=== PATIENT | male | born 1955 | race Caucasian/White ===

== ENCOUNTER 2017-10-28 18:51 | Observation (INO) | payer OTHER ==
[~2017-10-28] VITALS: Ht 182.9 cm; Wt 110.4 kg
[2017-10-28] MEDS ORDERED: LISINOPRIL10 M1 PO (18:54)
[2017-10-28] MEDS ORDERED: METFORMIN HCL500 M4 PO (18:54)
--- NOTE | 2017-10-28 19:09 | ED SYNCOPE COMPLAINT ---
History of Present Illness General Chief Complaint: Syncope and Near-Syncope Stated Complaint: BIBA FOR SYNCOPE X 3 TODAY Source: patient Exam Limitations: no limitations Vital Signs & Intake/Output Vital Signs & Intake/Output Vital Signs Date Time Temp Pulse Resp B/P B/P Pulse O2 O2 Flow FiO2 Mean Ox Delivery Rate 10/287 66 18 100/60 98 Room Air 10/28 2031 62 18 107/56 99 Room Air 10/28 1902 99 10/28 1857 98.5 63 18 114/58 97 Room Air Allergies Coded Allergies: NO KNOWN ALLERGIES (10/06/10) Reconcile Medications Lisinopril 10 MG TABLET 1 TAB PO DAILY BP (Reported) Metformin HCl (Metformin HCl ER) 500 MG TAB.ER.24H 1 TAB PO DAILY DM ( Reported) Triage Note: PT BIBA FROM HOME AFTER PASSING OUT X3 TODAY. PER EMS PT GOT DIAPHORETIC DENIES SOB OR CHEST PAIN. PT WAS IN AMBULANCE WHEN HE HAD SOME NAUSEA THAT DROPPED HIS PRESSURE TO 90/40. FLUID WERE EST. IN IV AND FLUID INFUSING. UPON ARRIVAL PT BP 114/58 AT THIS TIME HR 62 02 SAT 98% PM RA Triage Nurses Notes Reviewed? yes Timing: recent history Precipitating Factors: none Context: see below Episode Description: see below Loss of Consciousness: brief (seconds) Associated Symptoms: "I just passed out." HPI: 59-year-old gentleman history of diabetes presents with 3 episodes of syncope. Per his , "he was in the bedroom and I heard a noise. I went in and saw that he had passed out. He then got up, went to another room to get his diabetes medication. He then passed out again for a few seconds. He stood up he said he was feeling okay and then shortly afterwards he passed out again and lost consciousness for a few seconds." The patient states that he had no dizziness chest pain palpitations with any of these 3 episodes. These 3 episodes occurred in the spine and a 5 minutes. His loss of consciousness lasted for a few seconds only. The symptoms were not brought on with standing. He states he was not dehydrated. He states, "I drink water all the time." Past History Travel History Traveled to [place] past 21 day No Medical History Any Pertinent Medical History? 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 MOTHER (Diabetes, diabetic nephropathy, thyroid issues.). Hx Contributory? No Review of Systems Review of Systems Constitutional: Denies: see HPI. Physical Exam Physical Exam Cranial Nerves: normal hearing, normal speech, PERRL Comments: Review of Systems - except as otherwise noted in HPI Review of Systems Constitutional:no symptoms. EENTM:no symptoms. Respiratory:no symptoms. Cardiovascular:no symptoms. GI:no symptoms. Genitourinary:no symptoms. Musculoskeletal:no symptoms. Skin:no symptoms. Neurological/Psychological:no symptoms. Hematologic/Endocrine:no symptoms. Immunologic/Allergic:no symptoms. All Other Systems: Reviewed and Negative Physical Exam Physical Exam General Appearance: well developed/nourished, no apparent distress Head: atraumatic, normal appearance Eyes: Bilateral: normal appearance. Ears, Nose, Throat: normal pharynx, normal ENT inspection Neck: normal inspection, supple, full range of motion Respiratory: normal breath sounds, chest non-tender, no respiratory distress, quiet respiration, lungs clear Cardiovascular: regular rate/rhythm Gastrointestinal: normal bowel sounds, soft, non-tender, no organomegaly Back: normal inspection, normal range of motion Extremities: normal inspection, normal capillary refill, normal range of motion, no edema Neurologic/Psych: no motor/sensory deficits, awake, alert, oriented x 3 Skin: intact, normal color, warm/dry Core Measures ACS in differential dx? No CVA/TIA Diagnosis: No Sepsis Present: No Sepsis Focused Exam Completed? No Progress Differential Diagnosis: vasovagal, valvular syncope vs heart dysrythmia Plan of Care: Orders Procedure Date/time Status Heart Healthy Diet 10/29 B Active Patient Data 10/28 2113 Active Saline Lock 10/[address] in observation 10/29 2111 Active Misc Message 10/29 2111 Active ED Holding Orders 10/29 2111 Active Vital Signs 10/29 2111 Active Code Status 10/29 2111 Active MISTAKE 10/28 1948 Active URINALYSIS 10/28 1948 Active [place] Coma Scale 10/29 1939 Active Intake & Output 10/28 1938 Active TROPONIN LEVEL 10/28 1906 Complete LIPASE 10/28 1906 Complete HEPATIC FUNCTION PANEL 10/28 1906 Complete D-DIMER 10/28 1906 Complete CBC WITHOUT DIFFERENTIAL 10/28 1906 Complete BASIC METABOLIC PANEL 10/28 1906 Complete AMYLASE 10/28 1906 Complete EKG 10/28 1852 Active Laboratory Tests 10/28/171913: Anion Gap 11, Estimated GFR > 60, BUN/Creatinine Ratio 17.8, Glucose 116 H, Calcium 9.0, Total Bilirubin 1.1, Direct Bilirubin 0.1, AST 29, ALT 46, Alkaline Phosphatase 41, Troponin I < 0.01, Total Protein 6.6, Albumin 3.9, Amylase 51, Lipase 150, D-Dimer High Sensitivty < 200, CBC w Diff NO MAN DIFF REQ, RBC 5.24, MCV 85.1, MCH 28.7, MCHC 33.7, RDW 14.8 H, MPV 8.7, Gran % 67.4, Lymphocytes % 23.6, Monocytes % 6.6, Eosinophils % 1.7, Basophils % 0.7, Absolute Granulocytes 7.8 H, Absolute Lymphocytes 2.7, Absolute Monocytes 0.8 H, Absolute Eosinophils 0.2, Absolute Basophils 0.1 Diagnostic Imaging: Viewed by Me: Radiology Read, CT Scan. Discussed w/RAD: Radiology Read, CT Scan. Radiology Impression: PATIENT: MARIANELA BECKER PRESENT AGE: 61 PATIENT ACCOUNT NO: [id number] : 54 LOCATION: [facility] ([facility] ORDERING PHYSICIAN: Ross Butler MD SERVICE DATE: 10/28/17 EXAM TYPE: CAT - CT CERV SPINE WO IV CONTRAST; CT HEAD WO IV CONTRAST EXAMINATION: CT HEAD WITHOUT CONTRAST CT CERVICAL SPINE WITHOUT CONTRAST CLINICAL INFORMATION: Trauma. Loss of consciousness. Fall. Neck pain. COMPARISON : None. TECHNIQUE: Imaging was performed from the skull base to vertex without intravenous administration of contrast. In addition, helical noncontrast CT imaging was acquired through the cervical spine and source images were reviewed along with axial reconstructions and sagittal and coronal MPRs. DLP: 1067.94 mGy -cm FINDINGS: HEAD: No intracranial mass, hemorrhage, or midline shift is visualized. The ventricles and sulci are age-appropriate. No extra-axial collections are identified. The paranasal sinuses and mastoid air cells are well aerated. CERVICAL SPINE: There is no evidence of acute cervical spine fracture. Vertebral bodies remain normal in height. Cervical vertebrae have normal alignment. There is multilevel degenerative spondylosis of the cervical spine with disc height narrowing and endplate spurs and facet joint arthrosis No pre- or paravertebral soft tissue abnormality is identified. Limited assessment of the lung apices is unremarkable. IMPRESSION: 1. No acute intracranial pathology. 2. No CT evidence of acute cervical spine fracture or traumatic subluxation DICTATED BY: Pedro Obrien MD DATE/TIME DICTATED:10/28/172049 TOBACCO SPRAYER :OSEI DATE/TIME TRANSCRIBED:10/28/172049 CONFIDENTIAL, DO NOT COPY WITHOUT APPROPRIATE AUTHORIZATION. <Electronically signed in Other Vendor System> SIGNED BY: Pedro Obrien MD 10/28/172057 CXR Impression: PATIENT: MARIANELA BECKER PRESENT AGE : 61 PATIENT ACCOUNT NO: [id number] : 54 LOCATION: [facility] ([facility]) ORDERING PHYSICIAN: Ross Butler MD SERVICE DATE: 10/28/17 EXAM TYPE: RAD - XRY-PORTABLE CHEST XRAY EXAMINATION: XR PORTABLE CHEST CLINICAL INFORMATION: Chest pain COMPARISON: None TECHNIQUE: Portable frontal view of the chest was obtained. 8:34 PM FINDINGS: No significant abnormality is noted involving the heart, lungs, mediastinum, bony thorax or soft tissues. IMPRESSION : Unremarkable examination. DICTATED BY: Pedro Obrien MD DATE/TIME DICTATED:2100 TOBACCO SPRAYER:OSEI DATE/TIME TRANSCRIBED:10/28/172100 CONFIDENTIAL, DO NOT COPY WITHOUT APPROPRIATE AUTHORIZATION. <Electronically signed in Other Vendor System> SIGNED BY: Pedro Obrien MD 10/28/172104 Initial ED EKG: normal axis, normal intervals, normal p-waves, normal QRS complex, normal sinus rhythm Departure Departure Disposition: STILL A PATIENT Condition: Stable Clinical Impression Primary Impression: Syncope Referrals: Janae AGUDELO,Tee Bahena (PCP/Family) Departure Forms: Customer Survey General Discharge Information Observation Note Spoke With: Magdiel Gomez MD Patient In: Non-ED OBS Care Area Rationale for Observation: My rational for observation is as follows . pt with 3 episodes of syncope, without orthostasis in the context of his diabetes... Pt merits serial trops/ekgs, consider cards eval in AM. Critical Care Note Critical Care Note Critical Care Time: 30-74 min
[2017-10-28 19:22] LABS: ABSOLUTE BASOPHIL COUNT 0.1 /CUMM (0.0-0.2); ABSOLUTE EOSINOPHIL COUNT 0.2 /CUMM (0.0-0.7); ABSOLUTE GRANULOCYTE CT 7.8 /CUMM (1.4-6.5); ABSOLUTE LYMPH COUNT 2.7 /CUMM (1.2-3.4); ABSOLUTE MONOCYTE COUNT 0.8 /CUMM (0.10-0.60); BASOPHIL % 0.7 % (0.0-2.0); EOSINOPHIL % 1.7 % (0-5); GRANULOCYTE % 67.4 % (42.2-75.2); HEMATOCRIT 44.6 % (42-52); MEAN CORPUSCULAR HGB 28.7 PG (27.0-31.0); MEAN CORPUSCULAR HGB CONC 33.7 G/DL (33.0-37.0); MEAN CORPUSCULAR VOLUME 85.1 FL (80.0-94.0); MEAN PLATELET VOLUME 8.7 FL (7.4-10.4); PLATELET COUNT 241 /CUMM (130-400); RBC DISTRIBUTION WIDTH 14.8 % (11.5-14.5); RED BLOOD CELL CT 5.24 /CUMM (4.70-6.10); WHITE BLOOD CELL COUNT 11.6 /CUMM (4.8-10.8)
--- NOTE | 2017-10-28 20:58 | CT SCAN REPORT ---
EXAMINATION: CT HEAD WITHOUT CONTRAST CT CERVICAL SPINE WITHOUT CONTRAST CLINICAL INFORMATION: Trauma. Loss of consciousness. Fall. Neck pain. COMPARISON: None. TECHNIQUE: Imaging was performed from the skull base to vertex without intravenous administration of contrast. In addition, helical noncontrast CT imaging was acquired through the cervical spine and source images were reviewed along with axial reconstructions and sagittal and coronal MPRs. DLP: 1067.94 mGy-cm FINDINGS: HEAD: No intracranial mass, hemorrhage, or midline shift is visualized. The ventricles and sulci are age-appropriate. No extra-axial collections are identified. The paranasal sinuses and mastoid air cells are well aerated. CERVICAL SPINE: There is no evidence of acute cervical spine fracture. Vertebral bodies remain normal in height. Cervical vertebrae have normal alignment. There is multilevel degenerative spondylosis of the cervical spine with disc height narrowing and endplate spurs and facet joint arthrosis No pre- or paravertebral soft tissue abnormality is identified. Limited assessment of the lung apices is unremarkable. IMPRESSION: 1. No acute intracranial pathology. 2. No CT evidence of acute cervical spine fracture or traumatic subluxation
--- NOTE | 2017-10-28 21:05 | RADIOLOGY REPORT ---
EXAMINATION: XR PORTABLE CHEST CLINICAL INFORMATION: Chest pain COMPARISON: None TECHNIQUE: Portable frontal view of the chest was obtained. 8:34 PM FINDINGS: No significant abnormality is noted involving the heart, lungs, mediastinum, bony thorax or soft tissues. IMPRESSION: Unremarkable examination.
--- NOTE | 2017-10-28 21:37 | History & Physical ---
Horacio Moon 10/28/172135: General Information and HPI MD Statement: I have seen and personally examined MARIANELA BECKER and documented this H&P. The patient is a 61 year old M who presented with a patient stated chief complaint of [multiple syncopes]. Source of Information: patient, family Exam Limitations: no limitations History of Present Illness: The patient is a 61 years old man with a past medical history significant for DM , boarderline HTN, and anxiety who is here with CC of three episodes of syncope. Last night he slept on the couch for 8 hours and this morning when he woke up with a neck pain but he was fine other than that. He reports that he keeps himself hydrated daily. He has boarderline HTN (on Lisinopril), also DM (on Metformin), he took his medications this morning. His BS this morning was 97. and he has no history of low BS. He was fine till this evening that he was at home with his when he watching TV and tried to get up fast and collapsed which was witnessed by his (no abnormal movements reported). He fell backwards onto the bed and hit his back on the frame of the bed and denies any loss of consciousness. He went to the kitchen afterwards to do so where he again collapsed (this time her did not witness it); he does not recall if he had any injuries during this fall. He was found moments later on the floor by his whom picked him up and was walking down the arauz with him when he suddenly collapsed a third time. In the 3rd episode he also had diaphoresis. He reports any unusal symptoms prior to the syncope episodes. He reports no feces or urine passage and no headach after that. His denies any abnormal movement. He denies palpitaion, but he had nausea before he got to the ED. He was diagnosed with lyme and was on Doxycycline 100 BID and also had some cat scratch on his lower part of right patella ( cat was +ve for Bartonella), he was on Doxycycline for a total of two months BID. 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 Lab: WBC: 11.6, Hb: 15, Hct: 44.6, Plt: 241 Na: 139, K: 4.2, Cl: 104, CO2: 24, BUN: 16, Cr: 0.9, BS: 116 D-Dimer < 200 LFT: WNL Amylase: 51, Lipase: 150 Trop: 0.01 Imaging: CXR: Unremarkable examination. Head and Neck CT: 1. No acute intracranial pathology. 2. No CT evidence of acute cervical spine fracture or traumatic subluxation Allergies/Medications Allergies: Coded Allergies: NO KNOWN ALLERGIES (10/06/10) Home Med list Lisinopril 10 MG TABLET 1 TAB PO DAILY BP (Reported) Metformin HCl (Metformin HCl ER) 500 MG TAB.ER.24H 1 TAB PO DAILY DM ( Reported) Ranitidine HCl 300 MG TABLET 1 TAB PO QPM GERD (Reported) Compliance With Home Meds: GOOD Past History Travel History Traveled to [place] past 21 day No Medical History Neurological: LYME DISEASE BARTINELLA EENT: NONE Cardiovascular: Borderline HTN Respiratory: NONE Gastrointestinal: NONE Hepatic: NONE Renal: NONE Musculoskeletal: NONE Psychiatric: anxiety, PARONOID DISORDER Endocrine: diabetes Blood Disorders: NONE Cancer(s): prostate cancer 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 MOTHER (Diabetes, diabetic nephropathy, thyroid issues.). Psychosocial History Who Do You Live With? spouse Services at Home: None Primary Language: Setswana ETOH Use: denies use Illicit Drug Use: denies illicit drug use Functional Ability ADLs Independent: dressing, eating, toileting, bathing. Ambulation: independent IADLs Independent: housework, finances, telephone. Review of Systems Review of Systems Constitutional: Reports: see HPI. EENTM: Reports: see HPI. Cardiovascular: Reports: see HPI, syncope. Respiratory: Reports: see HPI, short of breath. GI: Reports: see HPI. Genitourinary: Reports: see HPI. Musculoskeletal: Reports: see HPI. Skin: Reports: see HPI. Neurological/Psychological: Reports: see HPI. Hematologic/Endocrine: Reports: see HPI. Immunologic/Allergic: Reports: see HPI. Exam & Diagnostic Data Last 24 Hrs of Vital Signs/I&O Vital Signs Date Time Temp Pulse Resp B/P B/P Pulse O2 O2 Flow FiO2 Mean Ox Delivery Rate 10/29 0050 98.0 60 18 122/64 Room Air 10/28 2310 98.6 70 18 119/72 96 Room Air 10/28 2217 66 18 100/60 98 Room Air 10/28 2031 62 18 107/56 99 Room Air 10/28 1902 99 10/28 1857 98.5 63 18 114/58 97 Room Air Intake & Output 10/29 0800 10/29 0000 10/28 1600 Intake Total 2000 Output Total Balance 2000 Intake, IV 2000 Patient 243 lb 250 lb Weight Weight Reported by Patient Measurement Method Physical Exam General Appearance Alert, Oriented X3, Cooperative, No Acute Distress (Obese) Skin No Rashes, No Breakdown Skin Temp/Moisture Exam: Warm/Dry Sepsis Skin Exam (color): Normal for Ethnicity HEENT Atraumatic, PERRLA, EOMI Neck Supple, No JVD Cardiovascular Regular Rate, Normal S1, Normal S2, systolic murmur Lungs Clear to Auscultation, Normal Air Movement Abdomen Normal Bowel Sounds, Soft, No Tenderness Neurological Normal Gait, Normal Speech, Normal Tone, Sensation Intact Extremities No Clubbing, No Cyanosis Vascular Normal Pulses, Pulses Symmetrical Sepsis Peripheral Pulse Location: Dorsalis Pedis Sepsis Peripheral Pulse Exam: Normal Sepsis Cap Refill Exam: <2 Sec Assessment/Plan Assessment: Mr. Becker is a 61 year old man with past medical history of HTN (on lisinopril), DM (on metformin), Lyme, and Bartonella who was brought in by EMS accompanied by his due to three episodes of syncopes. He reports that he had a neck pain from sleeping on his couch the night before. Other than that he did fine during the day. took his morning medications. had three episdoes of syncope two of which were witnessed by his . No abnornmal movements. No previous history of seizures. His CBC shows WBC of 11.6, and LFT, amylase, lipase, trops were within normal range, He has no electrolyte abnormality. His ECG was NSR, normal axis, no abnormality. Imagings including Head and spine CT showed no acute pathology. Findings in his CXR were unremarkable. He had no preceding aura and no history of seizures, his top DDx is of cardiac etiology which was possibly due to vasovagal syncope. Other possibility could be vertebro basilar insuff. Since he has a Hx of lyme and Bartonella, they should also evaluated (he was on doxycycline for 2 months.). MRI, MRA of brain to study the vertebrobasilar arteries is prudent to do. In order to look for cardiac issues ECHO and cardiop consult should be considered. The patient is admitted to [facility] for close observation of his heart rythem, BS will be controlled by accucheck, his HTN med is held due to possible orthostatic hypotension. DVT prophylaxis with lovonox is started for him. Problem List: Multiple episodes of syncope Hx of Lyme and Bartonella (Doxycycline 100 BID for 2 months). HTN DM (was on metformin at home) Anxiety and mood disorders As Ranked By This Provider Problem List: 1. Syncope 2. Anxiety 3. Borderline hypertension 4. Diet-controlled diabetes mellitus Core Measures/Misc (12/24) Acute Coronary Syndrome ACS Diagnosis: No Congestive Heart Failure Congestive Heart Failure Diagnosis No Cerebrovascular Accident CVA/TIA Diagnosis: No VTE (View Protocol) VTE Risk Factors Age>40 No Mechanical VTE Prophylaxis d/t N/A MechProphylax Ordered No VTE Pharm Prophylaxis d/t NA PharmProphylax ordered Sepsis (View protocol) Sepsis Present: No If YES complete Sepsis Event Note If YES complete Sepsis Event Note Mathieu Byrd MD 10/29/17 0036: Core Measures/Misc (12/24) Sepsis (View protocol) If YES complete Sepsis Event Note If YES complete Sepsis Event Note Resident Review Statement Resident Statement: examined this patient, discussed with product marketing intern, agreed with product marketing intern, reviewed EMR data (avail) Other Findings: History of present illness 61-year-old man with past medical history of hypertension, anxiety, paranoia/ mood disorder, iqj-kbytkje-nxgidsain diabetes mellitus, prostate cancer status post resection (2009), and recent diagnosis of Lyme disease/Bartonella status post 2 months doxycycline brought in by ambulance after suffering 3 syncopal events at home. Patient reportedly slept on his couch last night and woke up feeling well and in his normal state of health other than some mild left-sided neck pain. He took his meds in the morning, got ready for the day, ate breakfast, and ate dinner without any symptoms. In the evening he was lying in bed watching television when he got up "too fast" and "passed out" which was witnessed by his . He fell backwards onto the bed and hit his back on the frame of the bed and denies any loss of consciousness. He had not taken his evening metformin and went to the kitchen after this event to do so where he again syncopized which was unwitnessed; patient does not recall if he sustained any injuries during this fall. Patient was found moments later on the floor by his whom picked him up and was walking down the arauz with him when he suddenly collapsed a third time for which she contacted EMS whom brought him to the [place] ED for evaluation. Currently patient feels well and has no complaints. He denies any preceding symptoms or aura prior to these events. He reports seeing his PCP many times over the past several months after being diagnosed with both Lyme disease and Bartonella for which she was treated with 2 months of doxycycline. He developed various open lesions on his right lower extremity that he attributed to the Bartonella which apparently looked much better now. Review of systems He otherwise denies any headache, fever, chills, blurred/double vision, lightheadedness/dizziness at rest, chest pain, palpitations, heartburn, shortness breath, cough, nausea, vomiting, diarrhea, constipation, abdominal pain, numbness, tingling, weakness. Objective Vitals-temp 98.5, HR 62-63, RR 18, BP 107-114/56-58, O2 97-99% on room air Physical exam -General: Well-developed, well-nourished middle-aged man in no acute distress -HEENT: NCAT, PERRLA, EOMI, anicteric sclera, moist mucous membranes -Neck: Supple, no JVD, trachea midline, no accessory respiratory muscle use -Cardio: 2/6 systolic murmur; regular rate and rhythm -Pulmonary: Clear to auscultation bilaterally -Abdomen: Soft, nontender, nondistended, bowel sounds intact -Neuro: Awake and alert, oriented 3, cranial nerves II through XII grossly intact -Extremities: Various 1.5 cm erythematous crusted lesions on mid/distal right lower extremity, normal pulses, no edema Labs/imaging/studies -CBC: WBC 11.6, hemoglobin 15.0, hematocrit 44.6, platelet 241 -BMP: Sodium 139, potassium 4.2, chloride 104, CO2 24, BUN 16, creatinine 0.9, anion gap 11, glucose 116 -LFT: Within normal limits -Miscellaneous: Troponin I <0.01, d-dimer <200, amylase/lipase negative -EKG: Normal sinus rhythm -CXR: Unremarkable examination -CT head/cervical spine without IV contrast: 1. No acute intracranial pathology. 2. No CT evidence of acute cervical spine fracture or traumatic subluxation Assessment 61-year-old man with multiple medical problems brought in by ambulance for evaluation of multiple syncopal events. Currently patient feels fine and has no complaints. Vital signs are unremarkable. Physical examination demonstrates a middle-aged man in no acute distress with a systolic cardiac murmur and various erythematous crusted lesions on his right lower extremity. Labs including CBC, BMP, LFTs, troponin, amylase/ lipase, d-dimer are otherwise normal/unremarkable except for WBC 11.6. CT imaging of head and C-spine are negative for acute pathology. CXR is unremarkable. EKG shows normal sinus rhythm. Clinically patient appears to have had multiple syncopal events without preceding aura suggestive of cardiac etiology possibly secondary to vasovagal syncope versus cardiogenic versus vertebrobasilar insufficiency. Etiologies secondary to Lyme/Bartonella must be considered given his persistent right lower extremity rash despite 2 months of oral doxycycline which may need to be evaluated. Patient is being placed under observation on the telemetry floor for telemetry monitoring, MRI/MRA imaging, echocardiogram, orthostatic vitals, and cardiology evaluation. Problem list -Syncope, differentials include vasovagal versus cardiogenic versus vertebrobasilar insufficiency -Recent Lyme disease/Bartonella Mas status post 2 months doxycycline -right lower extremity rash -Hypertension -Saq-psmqvxv-hmuzqopub diabetes mellitus -History of anxiety/paranoia/mood disorder -History of prostate cancer status post resection (2009) Plan -Place under observation on telemetry floor -Telemetry monitoring -Check orthostatic blood pressures -Fall precautions -Accu-Cheks 3 times daily before meals/at bedtime -Continue home meds: Ranitidine -Hold lisinopril for possible orthostatic hypotension, restart as tolerated/ needed -Hold oral hypoglycemics while in hospital -Consult with cardiology for possible cardiogenic syncope/heart murmur -MRI/MRA -Transthoracic echocardiogram -Pain control with acetaminophen -Heart healthy diet -DVT prophylaxis with Lovenox -Full code Magdiel Gomez MD 10/29/17 0506: General Information and HPI Statement: I have seen and personally examined MARIANELA BECKER and documented this H&P. The patient is a 61 year old M who presented with a patient stated chief complaint of [syncope]. Source of Information: patient Exam Limitations: no limitations Past History Medical History Cardiovascular: hypertension Musculoskeletal: falls Psychiatric: anxiety Endocrine: diabetes Cancer(s): prostate cancer Surgical History Surgical History: PROSTATE SURGERY Past Family/Social History Psychosocial History Smoking Status: Never Smoked ETOH Use: denies use Illicit Drug Use: denies illicit drug use Review of Systems Review of Systems Constitutional: Reports: see HPI. Exam & Diagnostic Data Last 24 Hrs of Vital Signs/I&O Vital Signs Date Time Temp Pulse Resp B/P B/P Pulse O2 O2 Flow FiO2 Mean Ox Delivery Rate 10/29 0050 98.0 60 18 122/64 Room Air 10/28 2310 98.6 70 18 119/72 96 Room Air 10/28 2217 66 18 100/60 98 Room Air 10/28 2031 62 18 107/56 99 Room Air 10/28 1902 99 10/28 1857 98.5 63 18 114/58 97 Room Air Intake & Output 10/29 0800 10/29 0000 10/28 1600 Intake Total 2000 Output Total Balance 2000 Intake, IV 2000 Patient 243 lb 250 lb Weight Weight Reported by Patient Measurement Method Physical Exam General Appearance Alert, Oriented X3, Cooperative, No Acute Distress Skin No Rashes, No Breakdown HEENT Atraumatic, PERRLA, EOMI Neck Supple, No JVD Lymphatic Axillary nl, Cervical nl Cardiovascular Regular Rate, 2/6 systolic murmur Lungs Clear to Auscultation, Normal Air Movement Abdomen Normal Bowel Sounds, Soft Neurological Normal Gait, Normal Speech Extremities No Clubbing, No Cyanosis Last 24 Hrs of Labs/Nathan: Laboratory Tests 10/28/17 2317: Troponin I < 0.01 10/28/17 1914: Anion Gap 11, Estimated GFR > 60, BUN/Creatinine Ratio 17.8, Glucose 116 H, Calcium 9.0, Total Bilirubin 1.1, Direct Bilirubin 0.1, AST 29, ALT 46, Alkaline Phosphatase 41, Troponin I < 0.01, Total Protein 6.6, Albumin 3.9, Amylase 51, Lipase 150, D-Dimer High Sensitivty < 200, CBC w Diff NO MAN DIFF REQ, RBC 5.24, MCV 85.1, MCH 28.7, MCHC 33.7, RDW 14.8 H, MPV 8.7, Gran % 67.4, Lymphocytes % 23.6, Monocytes % 6.6, Eosinophils % 1.7, Basophils % 0.7, Absolute Granulocytes 7.8 H, Absolute Lymphocytes 2.7, Absolute Monocytes 0.8 H, Absolute Eosinophils 0.2, Absolute Basophils 0.1 Core Measures/Misc (12/24) Sepsis (View protocol) If YES complete Sepsis Event Note If YES complete Sepsis Event Note Attending MD Review Statement Attending Statement Attending MD Statement: examined this patient, discuss w/resident/PA/MATRIX PLATER, agreed w/resident/PA/MATRIX PLATER, amended to note Attending Assessment/Plan: This patient is a 61-year-old white male with a significant past medical history of hypertension, anxiety, paranoia/mood disorder, xet-vphnnjr-geoqdayjl diabetes mellitus, prostate cancer status post resection (2009), and recent diagnosis of Lyme disease/Bartonella henselae status post 2 months doxycycline brought in by ambulance after suffering 3 syncopal events at home. In the evening of admission he was lying in bed watching television when he got up "too fast" and "passed out" which was witnessed by his . He fell backwards onto the bed and hit his back on the frame of the bed and denies any loss of consciousness. He had not taken his evening metformin and went to the kitchen after this event to do so where he again syncopized which was unwitnessed; patient does not recall if he sustained any injuries during this fall. Patient was found moments later on the floor by his whom picked him up and was walking down the arauz with him when he suddenly collapsed a third time for which she contacted EMS whom brought him to the [facility] ED for evaluation. He denies any preceding symptoms or aura prior to these events. He reports seeing his PCP many times over the past several months after being diagnosed with both Lyme disease and Bartonella for which she was treated with 2 months of doxycycline. He developed various open lesions on his right lower extremity that he attributed to the Bartonella. VSS, 2/6 systolic murmur, various 1.5 cm erythematous crusted lesions on mid/distal right lower extremity, WBC 11.6, Troponin I <0.01, d-dimer <200, EKG: Normal sinus rhythm, CXR: Unremarkable examination. The patient appears to have had multiple syncopal events without preceding aura suggestive of cardiac etiology possibly secondary to vasovagal syncope versus cardiogenic versus vertebrobasilar insufficiency. MRI/MRA of head and Echocardiogram in the AM.
[2017-10-29 00:50] VITALS: BP 122/64
[2017-10-29] MEDS ORDERED: RANITIDINE HCL300 M1 PO (00:56)
[2017-10-29 06:49] VITALS: BP 136/66
[2017-10-29 07:54] LABS: ABSOLUTE BASOPHIL COUNT 0 /CUMM (0.0-0.2); ABSOLUTE EOSINOPHIL COUNT 0.2 /CUMM (0.0-0.7); ABSOLUTE GRANULOCYTE CT 6.3 /CUMM (1.4-6.5); ABSOLUTE LYMPH COUNT 1.8 /CUMM (1.2-3.4); ABSOLUTE MONOCYTE COUNT 0.6 /CUMM (0.10-0.60); BASOPHIL % 0.5 % (0.0-2.0); EOSINOPHIL % 2.3 % (0-5); GRANULOCYTE % 70.5 % (42.2-75.2); HEMATOCRIT 43.6 % (42-52); MEAN CORPUSCULAR HGB 28.8 PG (27.0-31.0); MEAN CORPUSCULAR HGB CONC 33.4 G/DL (33.0-37.0); MEAN CORPUSCULAR VOLUME 86.2 FL (80.0-94.0); MEAN PLATELET VOLUME 9.2 FL (7.4-10.4); PLATELET COUNT 218 /CUMM (130-400); RBC DISTRIBUTION WIDTH 14.5 % (11.5-14.5); RED BLOOD CELL CT 5.06 /CUMM (4.70-6.10)
--- NOTE | 2017-10-29 09:06 | PN-Observation ---
Bartolo Dyer 10/29/17 0905: Observation Note Observation Note _ I have personally examined MARIANELA BECKER. him disposition is uncertain at this time. Before a determination can be made, he requires continued observation for the following reasons [syncopal episodes]. Assessment/Plan Medical Assessment: Patient is a 61 year old male with PHM of HTN, diabetes mellitus who presented to the ED after multiple episodes of syncope without aura. Problem List: 1. Syncope Plan: 1. Syncope --Echocardiogram --Orthostatic vitals --MRI/MRA to evaluate vasculature 2. Anxiety/mood disorder psychiatric history --Later in the day, after the initial assessment, the patient began exhibiting paranoid thoughts regarding his hospitalization --Psych consulted DVT/Prophylaxis: mechanical, pharmacological Subjective Follow-up For: Syncope Tele-Events Since Last Visit: Sinus tachycardia 117-126 overnight Subjective: Patient seen resting comfortably in the bed. Currently, the patient has no complaints. He came to the hospital yesterday after several episodes of syncope , without preceding aura. He denies headache, dizziness, chest pain, palpitations, shortness of breath, peripheral edema. Patient reports that he had an echocardiogram done approximately 8 years ago prior to prostate surgery, but does not believe any abnormalities were found. Review of Systems Constitutional: Denies: chills, fever, weakness. Cardiovascular: Denies: chest pain, orthopena, palpitations. Respiratory: Denies: cough, short of breath. Gastrointestinal: Denies: abdominal pain, nausea, vomiting. Objective Last 24 Hrs of Vital Signs/I&O Vital Signs Date Time Temp Pulse Resp B/P B/P Pulse O2 O2 Flow FiO2 Mean Ox Delivery Rate 10/29 0649 98.2 63 18 136/66 96 10/29 0050 98.0 60 18 122/64 Room Air 10/28 2310 98.6 70 18 119/72 96 Room Air 10/28 2217 66 18 100/60 98 Room Air 10/28 2031 62 18 107/56 99 Room Air 10/28 1902 99 10/28 1857 98.5 63 18 114/58 97 Room Air Intake & Output 10/29 1600 10/29 0800 10/29 0000 Intake Total 2000 Output Total Balance 2000 Intake, IV 1999 Patient 110.393 kg 113.398 kg Weight Weight Reported by Patient Measurement Method Physical Exam General Appearance: Alert, Oriented X3, Cooperative, No Acute Distress HEENT: Atraumatic, PERRLA, EOMI Neck: Supple, No JVD Cardiovascular: Regular Rate, Normal S1, Normal S2, Systolic murmur appreciated Lungs: Clear to Auscultation Abdomen: Normal Bowel Sounds, Soft, No Tenderness Neurological: Normal Gait, Normal Speech, Strength at 5/5 X4 Ext Extremities: No Clubbing, No Cyanosis, No Edema Current Medications: Current Medications Sig/Luca Start time Last Medication Dose Route Stop Time Status Admin Acetaminophen 650 MG Q6P PRN 10/29 0100 AC PO Enoxaparin Sodium 40 MG DAILY 10/29 899 AC SC Famotidine 20 MG DAILY 10/29 899 AC PO Insulin Aspart 0 TIDAC 10/30 799 AC SC Sodium Chloride 1,000 ML BOLUS ONE 10/29 1999 DC 10/28 IV 10/28 Sodium Chloride 1,000 ML BOLUS ONE 10/28 1914 DC 10/28 IV 10/28 Last 24 Hrs of Labs/Mics: Laboratory Tests 10/29/17 0654: Anion Gap 8, Estimated GFR > 60, BUN/Creatinine Ratio 22.9, Magnesium 2.2, Troponin I < 0.01, CBC w Diff NO MAN DIFF REQ, RBC 5.06, MCV 86.2, MCH 28.8, MCHC 33.4, RDW 14.5, MPV 9.2, Gran % 70.5, Lymphocytes % 19.9 L, Monocytes % 6.8, Eosinophils % 2.3, Basophils % 0.5, Absolute Granulocytes 6.3, Absolute Lymphocytes 1.8, Absolute Monocytes 0.6, Absolute Eosinophils 0.2, Absolute Basophils 0 10/29/17 0448: Urine Color YEL, Urine Clarity CLEAR, Urine pH 6.0, Ur Specific [place] 1.020, Urine Protein NEG, Urine Ketones NEG, Urine Nitrite NEG, Urine Bilirubin NEG, Urine Urobilinogen 0.2, Ur Leukocyte Esterase NEG, Ur Microscopic EXAM NOT REQUIRED, Urine Hemoglobin NEG, Urine Glucose NEG 10/28/17 2317: Troponin I < 0.01 10/28/17 1914: Anion Gap 11, Estimated GFR > 60, BUN/Creatinine Ratio 17.8, Glucose 116 H, Calcium 9.0, Total Bilirubin 1.1, Direct Bilirubin 0.1, AST 29, ALT 46, Alkaline Phosphatase 41, Troponin I < 0.01, Total Protein 6.6, Albumin 3.9, Amylase 51, Lipase 150, D-Dimer High Sensitivty < 200, CBC w Diff NO MAN DIFF REQ, RBC 5.24, MCV 85.1, MCH 28.7, MCHC 33.7, RDW 14.8 H, MPV 8.7, Gran % 67.4, Lymphocytes % 23.6, Monocytes % 6.6, Eosinophils % 1.7, Basophils % 0.7, Absolute Granulocytes 7.8 H, Absolute Lymphocytes 2.7, Absolute Monocytes 0.8 H, Absolute Eosinophils 0.2, Absolute Basophils 0.1 Dawn AGUDELO,[facility] 10/29/17 1255: Observation Note Observation Note _ I have personally examined MARIANELA BECKER. him disposition is uncertain at this time. Before a determination can be made, he requires continued observation for the following reasons -Continue telemetry monitoring -psychiatric evaluation. Patient was seen during rounds this morning. He was alert and oriented 3 conversant appropriately and not in any acute distress. He had no focal neurologic deficits on examination. He was unclear about the circumstances that surrounded this fall. He reported some dizziness prior to falling. Denies any dizziness with position changes. Denies any dizziness currently. MRI/MRA of the brain was done today and showed no acute pathology. I went back and conveyed the results of the patient and his at the bedside. I did state to them that I would like to monitor the patient for another 24 hours on telemetry to assure that he does not have any arrhythmias that she get his full. At this point patient stated that he was ready to confess and ready to be taken away. He was in the impression that the hospital environment was staged and the hospital staff were FBi agents ready to take him away. At this point his stated that he has an underlying anxiety disorder for which she follows with the outpatient psychiatric service for psychotherapy. She reports that when he is in unfamiliar environment his anxiety gets very severe. Recommendations: -Continue telemetry monitoring overnight to rule out arrhythmias. -Follow-up results of echocardiogram. -Recommend psychiatric consultation for further evaluation of his paranoid thinking. -Mobilize patient as tolerated. -Maintain fall precautions.
--- NOTE | 2017-10-29 11:53 | MRI REPORT ---
EXAMINATION: BRAIN MRI WITHOUT CONTRAST HEAD MRA WITHOUT CONTRAST CLINICAL INFORMATION: Rule out vertebrobasilar insufficiency. Syncope x3. COMPARISON: Head CT 10/28/2017. TECHNIQUE: Multiplanar multisequence MRI of the brain was performed without contrast. MRA of the head was performed without contrast utilizing 3-D [id number] technique. FINDINGS: Brain MRI: There is no acute infarct, hemorrhage, mass, or extra-axial collection. There are mild foci of T2 hyperintensity in the bilateral cerebral white matter, which are nonspecific but likely reflect underlying small vessel disease. The ventricles are normal in size and configuration without evidence of hydrocephalus. The major arterial flow voids are preserved at the skull base. The orbital contents appear normal. There is mild paranasal sinus mucosal thickening without fluid levels. Head MRA: No intracranial aneurysm is seen. The intracranial internal carotid arteries appear normal. The anterior cerebral artery, anterior communicating artery, and middle cerebral arteries appear normal. The intradural vertebral arteries and basilar artery appear normal. The posterior cerebral arteries appear normal. There is a small right posterior communicating artery. IMPRESSION: - No acute infarct, hemorrhage, mass, or extra-axial collection. Mild small vessel ischemic changes in the cerebral white matter. - Normal appearance of the intracranial circulation without significant stenosis or aneurysm. Specifically, the vertebral basilar system is patent.
--- NOTE | 2017-10-29 14:30 | Cons- Cardiology ---
General Information and HPI Consulting Request Date of Consult: 10/29/17 Requested By: Kimi Seymour MD Reason for Consult: Recurrent syncope. Source of Information: patient Exam Limitations: poor historian History of Present Illness: Mr. Larry Muñoz is a 61-year-old male with a history of anxiety, prostate carcinoma s/p surgical resection, hypertension, and diabetes mellitus who presented to the ED on 10/28/2017 following several syncopal episodes at home during a brief period of time (~5 minutes). The first episode, which was witnessed by his , occurred while he attempted to assume an erect posture while lying in bed watching television. He fell backwards onto the bed and hit his back on the bed frame. The second episode, which was unwitnessed, occurred shortly thereafter, while he was walking to his kitchen. He was found on the floor by his moments later and was helped to his feet. The third episode occurred while he was walking down his hallway with his 's assistance and was associated with diaphoresis. He denies any prodromal symptoms, oral trauma, incontinence, etc. He was diagnosed with Lyme disease and was treated with Doxycycline 100 mg twice daily for approximately 1 month. While nearing the end of his Doxycycline therapy his cat tested positive for Bartonella so his antimicrobial therapy was extended for 2 additional months. He denies any history of previous syncope or near syncope. He also denies any known history of coronary, valvular, dysrhythmic/conduction disease, or cardiomyopathy. Allergies/Medications Allergies: Coded Allergies: NO KNOWN ALLERGIES (10/06/10) Home Med List: Lisinopril 10 MG TABLET 1 TAB PO DAILY BP (Reported) Metformin HCl (Metformin HCl ER) 500 MG TAB.ER.24H 1 TAB PO DAILY DM ( Reported) Ranitidine HCl 300 MG TABLET 1 TAB PO QPM GERD (Reported) Review of Systems Review of Systems: A 14 point system review was obtained was noncontributory, other than as above. Past History Travel History Traveled to [place] past 21 day No Medical History Blood Transfusion Hx: No Neurological: LYME DISEASE BARToNELLA EENT: NONE Cardiovascular: hypertension Respiratory: NONE Gastrointestinal: NONE Hepatic: NONE Renal: NONE Musculoskeletal: falls Psychiatric: anxiety Endocrine: diabetes Blood Disorders: NONE Cancer(s): prostate cancer RESEARCH AND DEVELOPMENT SCIENTIST/Reproductive: NONE Surgical History Surgical History: PROSTATE SURGERY Family History Relations & Conditions If Any: FATHER (CAD at age 69). MOTHER (Diabetes, diabetic nephropathy, thyroid issues.). Psychosocial History Who Do You Live With? spouse Services at Home: None Primary Language: Israeli Smoking Status: Never Smoked ETOH Use: denies use Illicit Drug Use: denies illicit drug use Functional Ability ADLs Independent: dressing, eating, toileting, bathing. Ambulation: independent IADLs Independent: housework, finances, telephone. Exam & Diagnostic Data Vital Signs and I&O Vital Signs Date Time Temp Pulse Resp B/P B/P Pulse O2 O2 Flow FiO2 Mean Ox Delivery Rate 10/29 08 96 Room Air 10/29 0649 98.2 63 18 136/66 96 10/29 0050 98.0 60 18 122/64 Room Air 10/28 2310 98.6 70 18 119/72 96 Room Air 10/28 2217 66 18 100/60 98 Room Air 10/28 2031 62 18 107/56 99 Room Air 10/28 1902 99 10/28 1857 98.5 63 18 114/58 97 Room Air Intake & Output 10/29 1600 10/29 0800 10/29 0000 10/28 1600 10/28 0800 10/28 0000 Intake Total 2000 Output Total Balance 2000 Intake, IV 2000 Patient 243 lb 250 lb Weight Weight Reported by Patient Measurement Method Physical Exam: Well-developed, well-nourished middle-aged male in no acute distress. Vital signs: See above. HEENT: Normocephalic, atraumatic, EOMI, slightly dry mucous membranes. Neck: No JVD, no bruits. Lungs: Clear to auscultation bilaterally. Heart: S1, S2 with a soft (grade 1/6) systolic murmur. No gallop or rub. PMI fifth ICS at [facility]. Abdomen: Soft, nontender, positive bowel sounds. Extremities: No edema. Labs/[place] Results: Laboratory Tests 10/29 10/29 0654 0448 Chemistry Sodium (137 - 145 mmol/L) 140 Potassium (3.5 - 5.1 mmol/L) 4.4 Chloride (98 - 107 mmol/L) 104 Carbon Dioxide (22 - 30 mmol/L) 27 Anion Gap (5 - 16) 8 BUN (9 - 20 mg/dL) 16 Creatinine (0.7 - 1.2 mg/dL) 0.7 Estimated GFR (>60 ml/min) > 60 BUN/Creatinine Ratio (7 - 25 %) 22.9 Magnesium (1.6 - 2.3 mg/dL) 2.2 Troponin I (<0.11 ng/ml) < 0.01 Hematology CBC w Diff NO MAN DIFF REQ WBC (4.8 - 10.8 /CUMM) 9.0 RBC (4.70 - 6.10 /CUMM) 5.06 Hgb (14.0 - 18.0 G/DL) 14.6 Hct (42 - 52 %) 43.6 MCV (80.0 - 94.0 FL) 86.2 MCH (27.0 - 31.0 PG) 28.8 MCHC (33.0 - 37.0 G/DL) 33.4 RDW (11.5 - 14.5 %) 14.5 Plt Count (130 - 400 /CUMM) 218 MPV (7.4 - 10.4 FL) 9.2 Gran % (42.2 - 75.2 %) 70.5 Lymphocytes % (20.5 - 51.1 %) 19.9 L Monocytes % (1.7 - 9.3 %) 6.8 Eosinophils % (0 - 5 %) 2.3 Basophils % (0.0 - 2.0 %) 0.5 Absolute Granulocytes (1.4 - 6.5 /CUMM) 6.3 Absolute Lymphocytes (1.2 - 3.4 /CUMM) 1.8 Absolute Monocytes (0.10 - 0.60 /CUMM) 0.6 Absolute Eosinophils (0.0 - 0.7 /CUMM) 0.2 Absolute Basophils (0.0 - 0.2 /CUMM) 0 Urines Urine Color (YEL,AMB,STR) YEL Urine Clarity (CLEAR) CLEAR Urine pH (5.0 - 8.0) 6.0 Ur Specific [place] (1.001 - 1.035) 1.020 Urine Protein (NEG,<30 MG/DL) NEG Urine Ketones (NEG) NEG Urine Nitrite (NEG) NEG Urine Bilirubin (NEG) NEG Urine Urobilinogen (0.1 - 1.0 EU/dl) 0.2 Ur Leukocyte Esterase (NEG) NEG Ur Microscopic EXAM NOT REQUIRED Urine Hemoglobin (NEG) NEG Urine Glucose (N MG/DL) NEG 10/28 10/28 2317 1914 Chemistry Sodium (137 - 145 mmol/L) 139 Potassium (3.5 - 5.1 mmol/L) 4.2 Chloride (98 - 107 mmol/L) 104 Carbon Dioxide (22 - 30 mmol/L) 24 Anion Gap (5 - 16) 11 BUN (9 - 20 mg/dL) 16 Creatinine (0.7 - 1.2 mg/dL) 0.9 Estimated GFR (>60 ml/min) > 60 BUN/Creatinine Ratio (7 - 25 %) 17.8 Glucose (65 - 99 mg/dL) 116 H Calcium (8.4 - 10.2 mg/dL) 9.0 Total Bilirubin (0.2 - 1.3 mg/dL) 1.1 Direct Bilirubin (< 0.4 mg/dL) 0.1 AST (17 - 59 U/L) 29 ALT (21 - 72 U/L) 46 Alkaline Phosphatase (< 127 U/L) 41 Troponin I (<0.11 ng/ml) < 0.01 < 0.01 Total Protein (6.3 - 8.2 g/dL) 6.6 Albumin (3.5 - 5.0 g/dL) 3.9 Amylase (30 - 110 U/L) 51 Lipase (23 - 300 U/L) 150 Coagulation D-Dimer High Sensitivty (0 - 243 ng/ml) < 200 Hematology CBC w Diff NO MAN DIFF REQ WBC (4.8 - 10.8 /CUMM) 11.6 H RBC (4.70 - 6.10 /CUMM) 5.24 Hgb (14.0 - 18.0 G/DL) 15.0 Hct (42 - 52 %) 44.6 MCV (80.0 - 94.0 FL) 85.1 MCH (27.0 - 31.0 PG) 28.7 MCHC (33.0 - 37.0 G/DL) 33.7 RDW (11.5 - 14.5 %) 14.8 H Plt Count (130 - 400 /CUMM) 241 MPV (7.4 - 10.4 FL) 8.7 Gran % (42.2 - 75.2 %) 67.4 Lymphocytes % (20.5 - 51.1 %) 23.6 Monocytes % (1.7 - 9.3 %) 6.6 Eosinophils % (0 - 5 %) 1.7 Basophils % (0.0 - 2.0 %) 0.7 Absolute Granulocytes (1.4 - 6.5 /CUMM) 7.8 H Absolute Lymphocytes (1.2 - 3.4 /CUMM) 2.7 Absolute Monocytes (0.10 - 0.60 /CUMM) 0.8 H Absolute Eosinophils (0.0 - 0.7 /CUMM) 0.2 Absolute Basophils (0.0 - 0.2 /CUMM) 0.1 Diagnostic Data EKG Results 10/29/2017 Sinus rhythm and within normal limits. CXR Results 10/28/2017 No cardiopulmonary process. Other Results Head MRI/neck MRA 10/29/2017 1. No acute infarct, hemorrhage, mass, or extra-axial collection. Mild small vessel ischemic changes in the cerebral white matter. 2. Normal appearance of the intracranial circulation without significant stenosis or aneurysm. Specifically, the vertebral basilar system is patent. CT head/cervical spine 10/28/2017 1. No acute intracranial pathology. 2. No CT evidence of acute cervical spine fracture or traumatic subluxation Assessment/Plan Assessment/Plan [id number] w/ hx of anxiety, prostate ca s/p resection, HTN, & DM who presented to the ED on 10/28/2017 following 3 syncopal episodes at home that occurred within a 5 minute period of time. The etiology for his syncopal episodes is unclear, but statistically they most likely occurred on vasovagal basis plus/minus some relative intravascular depletion based on his BUN/creatinine. Agree with a period of observation on telemetry, however, given his history of Lyme disease. Recommendations: * Observation on telemetry, follow-up troponins, repeat ECG. * Echocardiogram to assess left ventricular systolic/diastolic function, wall motion, LVH, etc. * Check free T4, TSH, glycosylated hemoglobin A1c. * DVT prophylaxis. Consult Acknowledgment - Thank you for your consult request.
--- NOTE | 2017-10-29 15:10 | OP PSYCH INCIDENTAL NOTE ---
OPS Incidental Note Details: Patient's Harris called and shared her is currently observation and is experiencing heightened anxiety and requesting to speak with Nenita Camacho. Nenita Camacho is away on vacation and unable to be reached. Called Judy from spiritual care to see if someone is able to mediate with him. Spoke with the charge nurse to see if he can obtain headphones and see if a rn document improvement can visit with him. Will give message to Nenita Camacho JAN Morris when she returns from her vacation.
--- NOTE | 2017-10-29 15:50 | Patient Discharge Instructions ---
Discharge Instructions General Discharge Information You were seen/treated for: Syncope Watch for these problems: With dizziness, feeling faint/flushed, or sudden sweating, please return to the emergency department. Special Instructions: Please follow-up with your primary care physician, senior compensation analyst, and therapist after discharge Your echocardiogram results were still pending upon discharge, we will follow-up with you about these results once they are back. Diet Continue normal diet: Yes Recommended Diet: Heart Healthy Activity Full Activity/No Limits: No Activity Self Limited: Yes Acute Coronary Syndrome Inclusion Criteria At DC or during hospital stay patient has or had the following: ACS DIAGNOSIS No Discharge Core Measures Meds if any: Prescribed or Continued at Discharge Meds if any: NOT Prescribed or Continued at Discharge Congestive Heart Failure Inclusion Criteria At DC or during hospital stay patient has or had the following: CHF DIAGNOSIS No Discharge Core Measures Meds if any: Prescribed or Continued at Discharge Meds if any: NOT Prescribed or Continued at Discharge Cerebrovascular accident Inclusion Criteria At DC or during hospital stay patient has or had the following: CVA/TIA Diagnosis No Discharge Core Measures Meds if any: Prescribed or Continued at Discharge Meds if any: NOT Prescribed or Continued at Discharge Venous thromboembolism Inclusion Criteria VTE Diagnosis No VTE Type NONE VTE Confirmed by (Test) NONE Discharge Core Measures - Per Current guidelines, there needs to be overlap - treatment for the first 5 days of Warfarin therapy. - If discharged on Warfarin prior to 5 days of - overlap therapy, the patient will need to be - assessed for post discharge needs including - *Post discharge parental anticoagulation - *Warfarin and/or parental anticoagulation education - *Follow up date to check INR post discharge At least 5 days overlap therapy as Inpatient No Meds if any: Prescribed or Continued at Discharge Note: Overlap Therapy is Warfarin and Anticoagulant Meds if any: NOT Prescribed or Continued at Discharge
--- NOTE | 2017-10-29 16:02 | Event Note ---
Event Note Event Note: Patient began growing agitated and requested to leave against medical advice. Risks and benefits of this decision were discussed with the patient, which he understood. The patient was assessed and found to have capacity, with instructions to return should his symptoms recur, as well as instructions to return to the emergency department with any new worrying symptoms. The patient's echocardiogram results are pending, which we will inform him about once they are finalized.
--- NOTE | 2017-10-29 17:48 | ECHOCARDIOGRAM REPORT ---
MARIANELA BECKER Age: 61 : 1955 Gender: M Exam Date: 10/29/2017 11:21 Exam Location: [facility] Ht (in): 72 Wt (lb): 243 BSA: 2.40 BP: 136 / 66 Ordering Physician: Mathieu Byrd MD Referring Physician: Mathieu Byrd MD Technologist: [facility] Room Number: 189-2 Indications: Syncope and collapse Rhythm: Sinus Technical Quality: Fair FINDINGS Left Ventricle Normal left ventricular size, wall thickness and systolic function with no obvious regional wall motion abnormalities. Normal left ventricular diastolic filling pattern for age. The ejection fraction is visually estimated at >65 %. Right Ventricle The right ventricle is normal in size and function. Right Atrium The right atrium is normal in size. Left Atrium Mild left atrial dilatation. Mitral Valve Mild thickening/calcification of the mitral valve leaflets. Mild mitral annular calcification. Trace mitral regurgitation. Aortic Valve Focal thickening of the aortic valve cusps. Mild aortic stenosis. No aortic regurgitation. Tricuspid Valve The tricuspid valve is normal in structure and function. There is trace tricuspid regurgitation. Unable to estimate the right ventricular systolic pressure. Pulmonic Valve Structurally normal pulmonic valve. There is no pulmonic regurgitation. Pericardium Normal pericardium without effusion. No pleural effusion. Great Vessels Normal aortic root dimension. The aortic arch and great vessels are well seen and are normal. CONCLUSIONS Normal left ventricular size, wall thickness and systolic function with no obvious regional wall motion abnormalities. Mild left atrial dilatation. Mild thickening/calcification of the mitral valve leaflets. Mild mitral annular calcification. Trace mitral regurgitation. Focal thickening of the aortic valve cusps. Mild aortic stenosis. No aortic regurgitation. Unable to estimate the right ventricular systolic pressure. Aman Cortes M.D. (Electronically Signed) Final Date: 29 October 2017 17:48 MEASUREMENTS (Male / Female) Normal Values 2D ECHO LV Diastolic Diameter PLAX 5.0 cm 4.2 - 5.9 / 3.9 - 5.3 cm LV Systolic Diameter PLAX 2.8 cm 2.1 - 4.0 cm LV Fractional Shortening PLAX 44.0 % 25 - 46 % LV Ejection Fraction 2D Teich 75.0 % IVS Diastolic Thickness 1.0 cm LVPW Diastolic Thickness 1.0 cm LV Relative Wall Thickness 0.4 RV Internal Dim ED PLAX 4.6 cm 1.9 - 3.8 cm LVOT Diameter 1.9 cm Aortic Root Diameter 2.6 cm LA Systolic Diameter LX 3.7 cm 3.0 - 4.0 / 2.7 - 3.8 cm LA Volume 69.0 cm 18 - 58 / 22 - 52 cm Ascending Aorta Diameter 3.2 cm DOPPLER AV Peak Velocity 232.0 cm/s AV Peak Gradient 21.5 mmHg AV Mean Velocity 163.0 cm/s AV Mean Gradient 12.0 mmHg AV Velocity Time Integral 50.7 cm LVOT Peak Velocity 123.0 cm/s LVOT Peak Gradient 6.1 mmHg LVOT Mean Velocity 86.0 cm/s LVOT Mean Gradient 3.0 mmHg LVOT Velocity Time Integral 26.2 cm LVOT Stroke Volume 74.3 cm AV Area Cont Eq vti 1.5 cm AV Area Cont Eq pk 1.5 cm MV Peak Velocity 109.0 cm/s MV Peak Gradient 4.8 mmHg MV Mean Velocity 67.1 cm/s MV Mean Gradient 2.0 mmHg Mitral E Point Velocity 108.0 cm/s Mitral A Point Velocity 99.7 cm/s Mitral E to A Ratio 1.1 MV PHT Velocity 113.0 cm/s MV Deceleration Green 395.0 cm/s MV Pressure Half Time 85.8 ms MV Area PHT 2.6 cm MV Deceleration Time 246.0 ms PV Peak Velocity 153.0 cm/s PV Peak Gradient 9.4 mmHg PV Mean Velocity 114.0 cm/s PV Mean Gradient 6.0 mmHg PV Velocity Time Integral 32.8 cm LV E' Lateral Velocity 13.5 cm/s Mitral E to LV E' Lateral Ratio 8.0 LV E' Septal Velocity 9.5 cm/s Mitral E to LV E' Septal Ratio 11.4
== END 2017-10-29 16:20 | disposition left against medical advice (07) ==
LOC: ERH 18:51 → ERHI 21:12 → 1NO 21:12 → ENRESERV 23:25 → 1NO 23:51 → ENPENDDIS 10-29 16:01 → 1NO 10-29 16:20
PROVIDERS: Internal Medicine Interventional Cardiology; Pediatrics
DX: R55 Syncope and collapse (principal); E11.9 Type 2 diabetes mellitus without complications; Z79.84 Long term (current) use of oral hypoglycemic drugs; I10 Essential (primary) hypertension; F41.9 Anxiety disorder, unspecified; F22 Delusional disorders; F39 Unspecified mood [affective] disorder; Z87.891 Personal history of nicotine dependence
CPT/HCPCS: 6020; 70551; 70555; 36592; 71045; 81003; 82436; 93005; 93010; 93306; 96372; G0378; J1650

== ENCOUNTER 2017-11-16 10:09 | Inpatient (IN) | payer OTHER ==
[~2017-11-16] VITALS: Ht 182.9 cm; Wt 101.2 kg
[~2017-11-16 10:09] MED LIST: LISINOPRIL10 M1 PO; METFORMIN HCL500 M4 PO; RANITIDINE HCL300 M1 PO
--- NOTE | 2017-11-16 10:13 | ED PSYCHIATRIC COMPLAINT ---
See Addendum History of Present Illness General Chief Complaint: Psychiatric Related Complaint Stated Complaint: BIBA, PSY EVAL Source: patient, old records, EMS Exam Limitations: no limitations Allergies Coded Allergies: NO KNOWN ALLERGIES (10/06/10) Reconcile Medications Lisinopril 10 MG TABLET 1 TAB PO DAILY BP (Reported) Metformin HCl (Metformin HCl ER) 500 MG TAB.ER.24H 1 TAB PO DAILY DM ( Reported) Triage Nurses Notes Reviewed? yes HPI: Patient brought in by ambulance from outpatient psychiatry for evaluation. Patient states that he is having a hard time fantasy from reality. Patient states that his hallucinations are worsening. Patient has been noncompliant with his medications. Patient denies any suicidal or homicidal ideations. (Syeda AGUDELO,Arnoldo Dennis) Vital Signs & Intake/Output Vital Signs & Intake/Output Vital Signs Date Time Temp Pulse Resp B/P B/P Pulse O2 O2 Flow FiO2 Mean Ox Delivery Rate 11/18 1444 98.6 92 16 121/69 96 Room Air 11/18 1208 97.5 92 16 132/70 96 Room Air 11/18 1002 70 126/78 11/18 0941 84 140/73 11/18 0915 96 Room Air 11/18 0608 98.7 84 18 140/73 98 Room Air 11/18 0318 97.7 84 18 115/69 99 Room Air 11/17 1843 98.2 84 18 108/55 98 (Raymond Hobbs DO) Past History Travel History Traveled to [place] past 21 day No Medical History Any Pertinent Medical History? 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 MOTHER (Diabetes, diabetic nephropathy, thyroid issues.). Hx Contributory? No (Syeda AGUDELO,Arnoldo Dennis) Review of Systems Review of Systems Constitutional: Reports: no symptoms. EENTM: Reports: no symptoms. Respiratory: Reports: no symptoms. Cardiovascular: Reports: no symptoms. GI: Reports: no symptoms. Genitourinary: Reports: no symptoms. Musculoskeletal: Reports: no symptoms. Skin: Reports: no symptoms. Neurological/Psychological: Reports: see HPI. Hematologic/Endocrine: Reports: no symptoms. Immunologic/Allergic: Reports: no symptoms. All Other Systems: Reviewed and Negative (Syeda AGUDELO,Arnoldo Dennis) Physical Exam Physical Exam General Appearance: well developed/nourished, mild distress Head: atraumatic Eyes: Bilateral: PERRL, EOMI. Ears, Nose, Throat: normal pharynx, normal ENT inspection, hearing grossly normal Neck: normal inspection, supple Respiratory: normal breath sounds Cardiovascular: regular rate/rhythm Gastrointestinal: soft, non-tender Extremities: normal range of motion Neurological/Psychiatric: no motor/sensory deficits, awake, alert, oriented x 3 Appearance/Memory/Insight: appropriate appearance, appropriate insight Behavoir/Eye Contact/Speech: cooperative, normal speech, good eye contact Thoughts/Hallucinations: visual hallucinations Skin: intact, normal color, warm/dry SAD PERSONS Done? CRISIS CONSULT (Syeda AGUDELO,Arnoldo Dennis) Progress Differential Diagnosis: drug intoxication, drug overdose, drug withdrawal, electrolyte abnormality Initial ED EKG: NSR, nonspecific ST T wave chg Prior EKG: unchanged Hand-Off Endorsed To: Raymond Hobbs DO Endorsed Time: 1899 Pending: consult Comments: Patient was seen and evaluated by crisis clinic. A bed search is underway. (Syeda AGUDELO,Arnoldo Dennis) Plan of Care: Orders Procedure Date/time Status Heart Healthy Diet 11/18 B Active Current Medications Sig/Luca Start time Last Medication Dose Stop Time Status Admin Lorazepam 1 MG BID 11/18 2100 UNVr (Ativan) Lisinopril 10 MG DAILY 11/17 0900 UNVr 11/18 (Prinivil) 0941 Benztropine Mesylate 0.5 MG 0600,1800 11/16 1820 AC 11/18 (Cogentin 0.5 MG Tab) 0607 Metformin HCl 500 MG 1700 08/10 1800 AC 11/17 (Glucophage XR 500 1703 mg tablet) Risperidone 1 MG 0600,1800 11/16 1800 AC 11/18 (Risperidone) 0607 (Raymond Hobbs DO) Departure Departure Disposition: STILL A PATIENT Condition: Stable Clinical Impression Primary Impression: Depression Referrals: Tee Cardoso MD Departure Forms: Customer Survey General Discharge Information (Arnoldo Landa MD) Departure Comments 11/17/17 12:43 AM She was signed out to me by Dr. Landa. He is for a bed search by crisis. He will be signed out to Dr. Landa at 7 AM (Raymond Hobbs DO) Primary Impression: Depression Referrals: Tee Cardoso MD Departure Forms: Customer Survey General Discharge Information (Arnoldo Landa MD) Departure Comments 11/17/17 12:43 AM She was signed out to me by Dr. Landa. He is for a bed search by crisis. He will be signed out to Dr. Landa at 7 AM (Raymond Hobbs DO)
[2017-11-16 11:22] LABS: ABSOLUTE BASOPHIL COUNT 0 /CUMM (0.0-0.2); ABSOLUTE EOSINOPHIL COUNT 0 /CUMM (0.0-0.7); ABSOLUTE LYMPH COUNT 0.9 /CUMM (1.2-3.4); ABSOLUTE MONOCYTE COUNT 0.5 /CUMM (0.10-0.60); BASOPHIL % 0.2 % (0.0-2.0); EOSINOPHIL % 0.3 % (0-5); GRANULOCYTE % 82.3 % (42.2-75.2); HEMATOCRIT 47.2 % (42-52); MEAN CORPUSCULAR HGB CONC 34.4 G/DL (33.0-37.0); MEAN CORPUSCULAR VOLUME 84.5 FL (80.0-94.0); PLATELET COUNT 264 /CUMM (130-400); RBC DISTRIBUTION WIDTH 13.9 % (11.5-14.5); RED BLOOD CELL CT 5.59 /CUMM (4.70-6.10); WHITE BLOOD CELL COUNT 8.5 /CUMM (4.8-10.8)
--- NOTE | 2017-11-16 16:14 | ED PSY CRISIS COLLATERAL NOTE ---
Collateral Note Collateral Note Family/Inform/Zach Contacts: STEPHANE received a call from Martha Smart APRN from [facility], reporting that she is sending a patient to the ED via 911. Martha states that this is a patient that sees Nenita Camacho and has not had medication management in 2-3 years. Marhta states that he did do well on Zoloft and Haldol, prior to stopping medication managment. It is not clear why he discontinued medication managment. Martha states that he carries a Diagnosis of Delusional Disorder and possibly SWATHI. She reports that he presented with paranoid delusions and was concerned for his cat and 's safety at home. Martha believes that the patient requires an admission and will be available for and further needed collateral.
--- NOTE | 2017-11-16 16:35 | ED PSYCH CRISIS CONSULTATION ---
See Addendum Crisis Consult Basic Assessment Date of Consult: 11/16/17 Responsible Person/Accompanied By: Self, -Ashlee Muñoz Insurance Authorization: Insurance #1: Insurance name: ROLF CARO Phone number: Policy number: [id number] Group number: [id number] Authorization number: ED Provider: Patient's ED Provider: Syeda AGUDELO,Arnoldo Dennis Primary Care Physician: Patient's PCP: Sandra Dasilva MD PCP's Current Psychiatrist: Sita Arias LCSW [facility] Chief Complaint: Psychiatric Related Complaint Patient's Quote: "I have problems distinguishing reality and non-reality." Present Illness: The patient is a 61 year old male BIBA from [facility] to the ED with a complaint of delusional thought process. Patient presented as alert, cooperative, orientated x3 with anxious mood and delusional thought process. Patient states "I have problems distinguishing reality from non-reality. There is stuff playing in my head, stuff gets added and builds and builds. There are two realities in my head and I go back and forth between the two. I make up a story in my head with people I meet being characters in the story. The story gets made up and builds. I cannot control it." The patient endorses having premonitions including knowing the space shuttle was blowing up in the 1980s, the twin towers were coming down, flight 800 being shot down, and a co-worker experiencing a work-related injury. He states he feels guilty and hopeless after the event happens because he did not intervene. The patient states he attended a class to see if he was a psychic in the past. The patient endorses watching the news on a consistent basis. "I am obsessed with the news." The patient endorses paranoid delusional thoughts of being under surveillance starting 3 weeks ago and not wanting to leave his home. The patient denies SI/HI/AH/VH. The patient denies being depressed stating "I do not know what depression is." The patient endorses regular sleep (8 hours nightly), normal appetite and unremarkable energy/motivation issues. The patient reports trouble concentrating as a result of delusional thought process. The patient reports past inpatient treatment, IOP and current treatment [facility]. The patient reports being on medication in the past (haldol, cogentin & zoloft), which helped ease his symptoms, but not have them cease. The patient reports not being compliant with medication for several years and relying on talk therapy. The patient denies any alcohol or drug use and toxicology/etoh screens were negative. The patient agreeable to a voluntary admission and to start taking medication to treat symptoms. Spoke to patient's , Ashlee Muñoz . Ashlee confirms patient's decompensation over the past three weeks and telling her of surveillance and premonitions. Ashlee states the patient's symptoms started worsening eight years ago, she attributes the decompensation to a stressful work environment the patient was exposed to at the time. Ashlee agrees the patient needs an admission to stabilize symptoms. Patient's Address: [address] [place] [address] Other Phone Number: Who Do You Live With? Family Family/Informants Interviewed: , Ashlee Muñoz Allergies - Coded Allergies: NO KNOWN ALLERGIES (10/06/10) Current Medications - Scheduled Medications Lisinopril 10 MG TABLET 1 TAB PO DAILY BP #30 (Reported) Entered as Reported by Monica Davis on 10/28/171853 Metformin HCl (Metformin HCl ER) 500 MG TAB.ER.24H 1 TAB PO DAILY DM #30 ( Reported) Entered as Reported by Monica Davis on 10/28/17 1854 Laboratory Results: Laboratory Tests 11/16/17 1238: Urine Opiates Screen < 100, Methadone Screen < 40, Barbiturate Screen < 60, Ur Phencyclidine Scrn < 6.00, Amphetamines Screen < 100, U Benzodiazepines Scrn < 85, Urine Cocaine Screen < 50, Urine Cannabis Screen < 5.00 11/16/17 1105: Anion Gap 13, Estimated GFR > 60, BUN/Creatinine Ratio 12.9, Glucose 134 H, Calcium 9.9, Total Bilirubin 1.0, AST 29, ALT 66, Alkaline Phosphatase 68, Troponin I < 0.01, Total Protein 7.6, Albumin 4.7, Globulin 2.9, Albumin/ Globulin Ratio 1.6, CBC w Diff NO MAN DIFF REQ, RBC 5.59, MCV 84.5, MCH 29.0, MCHC 34.4, RDW 13.9, MPV 9.0, Gran % 82.3 H, Lymphocytes % 10.8 L, Monocytes % 6.4, Eosinophils % 0.3, Basophils % 0.2, Absolute Granulocytes 7.0 H, Absolute Lymphocytes 0.9 L, Absolute Monocytes 0.5, Absolute Eosinophils 0, Absolute Basophils 0, Serum Alcohol < 10.0 (Otilia [facility]) Addendum Note Addendum Pt 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 Lobo. Pt verbalized paranoid thoughts he believes everyone in the hallway was the FBI and all "working for the government". Pt is perseverating on this thought and unable to stay in his room. He also believed the psychiatrist knew what he was talking about and would repeat "You know what I'm talking about" . Pt appeared extremely anxious, sad, depressed and was almost tearful during the interview. Pt denies having thoughts to kill himself or others. He denies alcohol or substance uses. Pt is sitting in the hallway away from the Behavioral Health Unit because he is unable to remain in his room (15) because he is afraid the FBI is after him. Pt is gravely disabled and meets criteria for inpatient admission. 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 Diagnosis by History: F22 Delusional Disorder Substance Use/Abuse History Drug Use/Abuse Substances Used/Abused No Substance Abuse Treatment Substance Abuse Treatment Past Substance Abuse [place] No Comments: Patient denies alcohol or drug use ([facility]) Current Mental Status Mental Status Orientation: Person, Place, Situation Affect: Anxious, Constricted Speech: WNL Neuro-vegetative: Concentration Poor Appearance Appearance- Dress/Hygiene: Patient was dressed in hospital scrubs and hygienic. Patient made minimal eye contact staring at the ground when speaking for a majority of the session. Behaviors Thought Process: Irrational Thought Content: Delusions, Obsessions Memory: WNL Insight: Poor SI/HI Risk Assessment Past Suicidal Ideation/Attempts No Current Suicidal Ideation/Att No Past Homicidal Ideation/Att: No Current Homicidal Ideation/Attempts No Degree of Intent: None Danger To: N/A Gravely Disabled: Inability Risk Factors: SA/MH hospitalized, male Lethality Ratin (mild) PTSD Checklist PTSD Done? patient declined ED Management Sitter: Yes Restraints: No ([facility]) DSM5/PS Stressors/Medical Prob Diagnosis' (DSM 5, Stressors, Medical): F22 Delusional Disorder Current GAF: 22 ([facility]) Departure Disposition Psych Medical Clearance Date: 11/16/17 Medically Cleared at: 1027 Time Started: 1500 Time Ended: 1545 Psychiatrist Consulted: Caryn Lobo MD Date Disposition Established: 11/16/17 Time Disposition Established: 1549 Plan for Disposition - Modality: Bed Search Rationale for Disposition: The patient presents with paranoid delusional thought process described as an experience of two separate realities and thinking he has been under surveillance the past three weeks. The patient endorses premonitions of past tragic events he feels guilty and hopeless for not intervening to help. The patient has not been taking medication for delusions and has decompensated. Dr. Lobo agrees the patient is gravely diabaled and in need of inpatient treatment. Type of IP Admission: Voluntary Additional Instructions: None Referrals Brown AGUDELO,Sandra (PCP/Family) ([facility]) Addendum Addendum Crisis met pt for reeval. He is accompanied by his . Pt continues to express feeling anxious and is in agreement for inp psych. (Opal Brown LCSW) Addendum Pt met with crisis this afternoon for reassessment. He reports continued distress and anxiety regarding "movie keeps going in my head". Both he and were hopeful that he would have begun feeling better by now since he has been in ED since Sunday. Crisis informed them that a bed on [facility] will be available later today. Pt in agreement with inpatient psychiatric admission and willing to sign voluntary admission form for [facility]. (Stacie MONTOYA,Eduardo)
--- NOTE | 2017-11-17 20:34 | ED PSYCHIATRIST/APRN CONSULT ---
Psychiatrist/SYSTEM CONSULTANT ED Consult Assessment and Plan: Case was seen and discussed with Automatic Head Sawyer. Briefly, Mr Amisha is a 61 y/o WM carries a dx of delusional dx persecutory type and SWATHI. Had not been under pharmacologic tx for more than 3 yrs or so. Presents with 3 week h/o worsening paranoid delusions. Unable to state stressors ; highly preocuppied with paranoid delusions and displaying thougth disorganization in form of thougth blocking and tangentiatily. Distressed by the activity in the ED already engulfing ED activities into his delusional system. Tearful and anxious when this director underwriter sales saw him around noon time. Slept some hours nigth before. Had breakfast. at bedside anxious about the millieu in the unit. Has tolerated initial dose of Risperdal. Plan COntinues in need of IP psychiatric stabilization for grave disability. Offer Ativan 1 mg BID and continue Risperdal 1 mg BID. May use extra Risperdal 1 mg QD PRN if agitation or paranoia worsens.
--- NOTE | 2017-11-18 17:54 | ED PSYCHIATRIST/APRN CONSULT ---
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 Muñoz was re-evlauted with contact lens flashing puncher. 61 y/o WM Psychosis NOS. Schizphrenia Psectrum Dx. cluster A/ SWATHI He seems less anxious and perseverative in delusional themes. Has been able to tolerate staying in area. Agreeable for to bring a [employer] game. Sleep fragmented. Poor appetite. Remains internally preocuppied and with some thougth blocking. Plan Still would benefit IP levle of care to monitor psychotic process. Grave disability still a concern. Offer Ativan 1 mg BID Continue Risperdal 1 mg BID. COnsider re starting Zoloft.
--- NOTE | 2017-11-19 14:26 | IP CRISIS DIAG ASSESS PSYCH ---
See Addendum Diagnostic Assessment Basic Assessment Insurance Authorization: Insurance #1: Insurance name: JOHNY CARO Phone number: Policy number: [id number] Group number: [id number] Authorization number: [id number] approved 3 days Review 11/21 Johny patient case manager will be assigned and will contact [facility] Primary Care Physician: Patient's PCP: Sandra Dasilva MD PCP's Patient's Quote: "I have problems distinguishing reality and non-reality." Present Illness: The patient is a 61 year old male BIBA from [facility] to the ED with a complaint of delusional thought process. Patient presented as alert, cooperative, orientated x3 with anxious mood and delusional thought process. Patient states "I have problems distinguishing reality from non-reality. There is stuff playing in my head, stuff gets added and builds and builds. There are two realities in my head and I go back and forth between the two. I make up a story in my head with people I meet being characters in the story. The story gets made up and builds. I cannot control it." The patient endorses having premonitions including knowing the space shuttle was blowing up in the , the twin towers were coming down, flight 800 being shot down, and a co-worker experiencing a work-related injury. He states he feels guilty and hopeless after the event happens because he did not intervene. The patient states he attended a class to see if he was a psychic in the past. The patient endorses watching the news on a consistent basis. "I am obsessed with the news." The patient endorses paranoid delusional thoughts of being under surveillance starting 3 weeks ago and not wanting to leave his home. The patient denies SI/HI/AH/VH. The patient denies being depressed stating "I do not know what depression is." The patient endorses regular sleep (8 hours nightly), normal appetite and unremarkable energy/motivation issues. The patient reports trouble concentrating as a result of delusional thought process. The patient reports past inpatient treatment, IOP and current treatment with [facility]. The patient reports being on medication in the past (haldol, cogentin & zoloft), which helped ease his symptoms, but not have them cease. The patient reports not being compliant with medication for several years and relying on talk therapy. The patient denies any alcohol or drug use and toxicology/etoh screens were negative. The patient agreeable to a voluntary admission and to start taking medication to treat symptoms. Spoke to patient's , Ashlee Muñoz . Ashlee confirms patient's decompensation over the past three weeks and telling her of surveillance and premonitions. Ashlee states the patient's symptoms started worsening eight years ago, she attributes the decompensation to a stressful work environment the patient was exposed to at the time. Ashlee agrees the patient needs an admission to stabilize symptoms. Patient's Address: [address] [place] [address] Other Phone Number: Who Do You Live With? Family Feel Safe Where You Live? Yes Feel Safe in Your Relationship Yes Marital Status: Do You Have Children? No Primary Language? Palestinian Language(s) Spoken At Home: Palestinian Family/Informants Interviewed: , Ashlee Muñoz Allergies - Coded Allergies: NO KNOWN ALLERGIES (10/06/10) Current Medications - Scheduled Medications Lisinopril 10 MG TABLET 1 TAB PO DAILY BP #30 (Reported) Entered as Reported by Monica Davis on 10/28/171853 Metformin HCl (Metformin HCl ER) 500 MG TAB.ER.24H 1 TAB PO DAILY DM #30 ( Reported) Entered as Reported by Monica Davis on 10/28/17 185 Consequences of Psych Med Use: not currently prescribed medications Lab Results: Laboratory Tests 11/19/17 1610: Hemoglobin A1c Pending, Triglycerides 173 H, Cholesterol 180, LDL Cholesterol, Calc 115, HDL Cholesterol 31 L, Cholesterol/HDL Ratio 6 H, TSH &T3 &Free T4 Intrp Pending, RPR Titer/FTA Pending Toxicology Screen Completed? No Symptoms of Use: no reported use Past History Past Medical History Medical History: Cancer Past Surgical History Surgical History prostate removed Abuse/Trauma History Trauma History/Current Trauma: none reported. Victim or Perpretator? victim (none reported) Patient's Age at Time of Trauma: 1 Abuse/Trauma Treatment: Client denied any trauma or trauma treatment. Legal History Current Legal Status: none Psychosocial History Strengths/Capabilities: Client has worked in the past Client is able to articulate himself clearly Physical Limitations (Interventions): None noted Psychiatric Treatment History Psych Treatment Psychiatric Treatment Yes Inpatient Treatment Yes Outpatient Treatment Yes [facility] of [facility] Reason for Treatment Delusional Disorder Dates of Treatment [facility]11/2014; [facility]Current Response to Treatment Delusions have intensified and patient has decompensated. Diagnosis by History: F22 Delusional Disorder Risk Factors: SA/MH hospitalized, male Substance Use/Abuse History Drug Use/Abuse minimum 12mo Hx Substances Used/Abused No Substance Abuse Treatment Substance Abuse Treatment Past Substance Abuse [place] No Sexual History Sexual Concerns: None Education History Highest Level of Education: high school/GED Preferred Learning Style: visual, auditory, experiential Current Mental Status Mental Status Orientation: Person, Place, Situation Affect: Anxious, Constricted Speech: WNL Neuro-vegetative: Concentration Poor Appearance Appearance- Dress/Hygiene: Patient was dressed in hospital scrubs and hygienic. Patient made minimal eye contact staring at the ground when speaking for a majority of the session. Behaviors Thought Process: Irrational Thought Content: Delusions, Obsessions Memory: WNL Insight: Poor SI/HI Risk Assessment - Minimum 6mo History- Past Suicidal Ideation/Attempts No Current Suicidal Ideation/Att No Past Homicidal Ideation/Att: No Current Homicidal Ideation/Attempts No Degree of Intent: None Danger To: N/A Gravely Disabled: Inability Risk Factors: SA/MH hospitalized, male Lethality Ratin (mild) Needs/Init [place] Plan/Goals: Psychiatric Evaluation Medication Evaluation Individual, Family and Group Meetings Coordinated Discharge Planning AUDIT-C Questionnaire: AUDIT-C Questionnaire: Response Value ETOH use in the past year Monthly or less 1 # drinks typical/day Doesn't Drink 0 6 or > drinks per occasion Never 0 Total 1 DSM5/PS Stressors/Medical Prob Diagnosis' (DSM 5, Stressors, Medical): Other Specified Schizophrenia D/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
[2017-11-19 17:55] VITALS: BP 142/82
[2017-11-19 20:04] VITALS: BP 106/73
[2017-11-20 07:56] VITALS: BP 127/94
--- NOTE | 2017-11-20 13:30 | CPS PROVIDER INIT ASMT PSYCH ---
Psychiatric Admission Astrobiologist's Note Reviewed: Yes Patient Seen and Examined: Yes Identifying Information: 62-year-old white male Chief Complaint: "I have problems distinguishing reality from non-reality" Reaction to Hospitalization: Patient was admitted voluntarily History of Present Illness Onset of Illness: At least since 2014 if not longer. Current. The decompensation may have been over the past few weeks to few months Circumstances Leading to Admission: According to the nuclear equipment sales engineer's evaluation: " The patient is a 61 year old male BIBA from [facility] to the ED with a complaint of delusional thought process. Patient presented as alert, cooperative, orientated x3 with anxious mood and delusional thought process. Patient states "I have problems distinguishing reality from non-reality. There is stuff playing in my head, stuff gets added and builds and builds. There are two realities in my head and I go back and forth between the two. I make up a story in my head with people I meet being characters in the story. The story gets made up and builds. I cannot control it." The patient endorses having premonitions including knowing the space shuttle was blowing up in the , the twin towers were coming down, flight 800 being shot down, and a co-worker experiencing a work-related injury. He states he feels guilty and hopeless after the event happens because he did not intervene. According to the nuclear equipment sales engineer's evaluation: Quotation the patient states he attended a class to see if he was a psychic in the past. The patient endorses watching the news on a consistent basis. "I am obsessed with the news." The patient endorses paranoid delusional thoughts of being under surveillance starting 3 weeks ago and not wanting to leave his home. Problem(s) Justifying Need for Admission: Psychotic symptoms Past Psychiatric History Past Diagnosis(es)- if any: Delusional disorder was diagnosed in 2014 1 the patient was inpatient Past Precipitating Factors- if any: Unclear any particular precipitants - Include inpatient and outpatient treatment Treatment History: Patient has been previously on the inpatient psychiatric unit at [facility] back in 2014. He has done intensive outpatient treatment as well as outpatient treatment. He has not been on medication since at least March 2016 History of Suicide Attempts or Gestures Denied history of suicide attempts. Substance Abuse History: Patient reported that in the past he may have abused alcohol for a while. But currently does not abuse alcohol or substances. He also used some cannabis as a teenager up until age 21 Allergies: Coded Allergies: NO KNOWN ALLERGIES (10/06/10) Home Med List: Has not been on psychotropic medications before coming here - Include any medical condition(s) that may - impact the patient's recovery/remission Past Medical History: Diabetes mellitus Status post prostate cancer in full remission Past History Medical History Neurological: LYME DISEASE BARToNELLA EENT: NONE Cardiovascular: hypertension Respiratory: NONE Gastrointestinal: NONE Hepatic: NONE Renal: NONE Musculoskeletal: falls Psychiatric: anxiety Endocrine: diabetes Blood Disorders: NONE Cancer(s): prostate cancer HOSPICE ADMINISTRATOR/Reproductive: NONE History of MRSA: No History of VRE: No History of CDIFF: No Isolation History: Standard Surgical History Surgical History: prostate removed Psychiatric Family/Social Hx Family History Psychiatric Illness: Both parents are Patient denied that either 1 of them or his family had major psychiatric illnesses Substance Use: Denied alcohol or substance abuse among her blood relations Suicides: No suicides in the family Social History Living Situation: Lives with Significant Relationships (family/friends): Education: Please refer to the biopsychosocial assessment Vocation/Occupation: Please refer to the biopsychosocial assessment Legal: Please refer to the patient's biopsychosocial assessment by the LABORATORY TESTER [employer] Behaviors Screening Tobacco Screening Tobacco Use from ED Docu: Never used - If tobacco counseling indicated - the following topics are required. - #1 Recognizing dangerous situations. - #2 Coping Skills. - #3 Basic information about quitting. Status of Tobacco Cessation Counseling: Not Applicable Cessation Med Status Not Applicable Alcohol Screening - ETOH screen POS if BAL >=80 or Audit-C>= M4/F3 Audit-C Score from Diag Assess: 1 Blood Alcohol Level: Lab Serum Alcohol < 10.0 MG/DL 11/16/17 1105 Alcohol Use Screening Results: Neg per Audit C &/or BAL - If ETOH counseling indicated - the following topics are required. - #1 Express concern about the patient's - drinking at unhealthy levels, include informing - of national norms for moderate drinking: - men <= 14 drinks/week, max 4 drinks/occasion - women <= 7 drinks/week, max 3 drinks/occasion - #2 Providing feedback, including linking alcohol to - negative physical effects (liver injury, hypertension) - negative emotional effects (relationship problems and - depression) - negative occupational consequences (reduced work - performance) - #3 Advising the patient to abstain from alcohol or - to drink below national norms for moderate drinking - (as listed above). Status of ETOH Use Counseling: N/A B/C NO ETOH Use Metabolic Screening - Screen if on a Neuroleptic Medication - Metabolic screening should include: - Blood Pressure, BMI, Glucose or Hgb A1c, & a - Lipid profile from within the past 365 days. Metabolic Screening Patient on a neuroleptic(s) . Enter below results for Hemoglobin A1C, and lipid panel if obtained during the last 365 days. BMI: 30.200 Blood Pressure: 127/94 Laboratory Results From [facility] (If applicable): Lab Cholesterol 180 MG/DL 11/19/17 1610 Cholesterol/HDL Ratio 6 % H 11/19/17 1610 HDL Cholesterol 31 mg/dL L 11/19/17 1610 Hemoglobin A1c 6.2 % H 11/19/17 1610 LDL Cholesterol, Calc 115 mg/dL 11/19/17 1610 Triglycerides 173 mg/dL H 11/19/17 1610 Exam and Plan Mental Status Examination Ambulation Status: The patient was steady on his feet. Appearance: Marginal grooming. Attitude towards examiner: Calm, Cooperative. Psychomotor activity: Normal psychomotor activity. Behavior: No abnormal behaviors. Quality of speech: Normal speech, not pressured, not slurred Affect: Constricted range of affect Mood: Depressed and anxious Suicidal Ideation: Denied thinking of suicide or wishing Homicidal Ideation: Denied thinking of violence or homicide Hallucinations: Denied hallucinations Paranoid/Delusional Material: Denied paranoid fears, there were no specific delusions during the interview Difficulties with thought organization: He reported difficulties with thought organization prior to coming here, he reported that he had racing thoughts and was feeling that he could not keep up or make sense of his own thoughts. Insight: Partial insight Judgment: Seems to have reasonable judgment Orientation: Alert and oriented to time, place, and person. Cognition: Mild difficulties with attention concentration and information processing. Memory Function: No gross deficits in short-term memory, however, he did require repetition of a couple of things before he retained them (example of the potential side effects of Zoloft which she had difficulty remembering arthritis first told him about 3 or 4 of them) Estimate of intellectual functioning: Average Assets/Strengths Patient Identified Assets/Strengths: Patient seems to be intelligent, motivated, insightful, and has a supportive family Impression/Plan Impression and Plan: 61-year-old white male who presents with difficulties recognizing reality from non-reality in his own words. 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 He was diagnosed in 2014 with a delusional disorder after an inpatient psychiatric admission. He has been without psychotropic medications since at least March 2016. - Include all active medical diagnosis that require tx DSM 5 Diagnosis(es): Unspecified psychotic disorder Generalized anxiety disorder Status post prostate cancer and, in remission and Diabetes mellitus - Initial Tx Plan for Active Psych & Medical Conditions Treatment Plan: Inpatient psychiatric care with safety checks every 15 minutes Nursing assessments, vital signs, and patient education and Group therapy, activities therapy, and milieu therapy Continue Risperdal 1 mg twice daily Add as needed doses of Ativan 1 mg for anxiety every 6 hours Add Ativan 2 mg as needed at bedtime for insomnia Start Zoloft 50 mg once daily starting today - Factors that would help patient function - in a less restrictive setting. Factors: The patient will be discharge once his thought processes coherent and organized
--- NOTE | 2017-11-20 13:34 | SOCIAL WORKER PROG NOTE PSYCH ---
Eduardo Arce 11/20/17 1330: Social Work Progress Note Progress Note This curriculum writer attempted to complete Social HX with pt curriculum writer was told pt was in group and could not be removed from group. This curriculum writer will attempt to complete Social Hx on 11/21
--- NOTE | 2017-11-20 13:36 | History & Physical ---
General Information and HPI History of Present Illness: This middle-aged male came in 4 bizarre mental behavior and inability to control his thoughts and was brought in by his because of worsening mental status. He also reports that he has had previous psychiatric admission couple years ago and he goes to psychiatric outpatient off and on. He also reports that he was told by his medical physician that he had high blood pressure in the sugar was somewhat high and he was started on medicine which he has not been taking on any regular basis. He claimed that there is some family history of mental illness and is mother and aunt and his both parents are . He has 5 siblings who are in good health. The patient is and lives with his but does not have any children he denies smoking or drinking any significant amount of alcohol. He is not employed at this time and has not worked in about 9-10years. Allergies/Medications Allergies: Coded Allergies: NO KNOWN ALLERGIES (10/06/10) Home Med list Lisinopril 10 MG TABLET 1 TAB PO DAILY BP (Reported) Metformin HCl (Metformin HCl ER) 500 MG TAB.ER.24H 1 TAB PO DAILY DM ( Reported) Past History Travel History Traveled to [place] past 21 day No Medical History Neurological: LYME DISEASE BARToNELLA EENT: NONE Cardiovascular: hypertension Respiratory: NONE Gastrointestinal: NONE Hepatic: NONE Renal: NONE Musculoskeletal: falls Psychiatric: anxiety Endocrine: diabetes Blood Disorders: NONE Cancer(s): prostate cancer BUTTON TUFTER/Reproductive: NONE History of MRSA: No History of VRE: No History of CDIFF: No Isolation History: Standard Surgical History Surgical History: PROSTATE SURGERY Past Family/Social History Family History Relations & Conditions if any FATHER (CAD at age 69). MOTHER (Diabetes, diabetic nephropathy, thyroid issues.). Psychosocial History Where do you live? Home Who Do You Live With? spouse Services at Home: None Primary Language: Citizen Of [place] ETOH Use: denies use Illicit Drug Use: marijuana Functional Ability ADLs Independent: dressing, eating, toileting, bathing. Ambulation: independent IADLs Independent: housework, finances, telephone. Review of Systems Review of Systems Constitutional: Denies: no symptoms. EENTM: Denies: no symptoms. Cardiovascular: Denies: no symptoms. Respiratory: Denies: no symptoms. GI: Denies: no symptoms. Genitourinary: Denies: no symptoms. Musculoskeletal: Denies: no symptoms. Skin: Denies: no symptoms. Neurological/Psychological: Reports: see HPI, confusion, depressed, emotional problems. Hematologic/Endocrine: Denies: no symptoms. Immunologic/Allergic: Denies: no symptoms. All Other Systems: Reviewed and Negative Exam & Diagnostic Data Last 24 Hrs of Vital Signs/I&O Vital Signs Date Time Temp Pulse Resp B/P B/P Pulse O2 O2 Flow FiO2 Mean Ox Delivery Rate 11/20 0901 96 127/94 11/20 0756 96.5 96 127/94 11/19 2004 97.0 94 106/73 11/19 1755 97.6 96 142/82 11/19 1713 98.1 94 20 135/90 95 Room Air 11/19 1450 98.1 86 20 141/83 93 Room Air Intake & Output 11/20 1600 11/20 0800 11/20 0000 Intake Total Output Total Balance Patient 223 lb Weight Physical Exam General Appearance Alert, Cooperative, No Acute Distress Skin No Rashes, No Breakdown, No Significant Lesion HEENT Atraumatic, PERRLA, EOMI, Mucous Membr. moist/pink Neck Supple, No JVD, No thryomegaly, +2 Carotid Pulse wo Bruit Lymphatic Cervical nl Cardiovascular Regular Rate, Normal S1, Normal S2, Gallops, Rubs, 2/6sys murmur + Lungs Clear to Auscultation, Normal Air Movement Abdomen Soft, No Tenderness, No Hepatospenomegaly, No Masses Neurological Exam Findings: Normal Gait, Normal Speech, Strength at 5/5 X4 Ext, Normal Tone, Cranial Nerves 3-12 NL, Reflexes 2+ Cranial Nerves II through XII: wnl Extremities No Clubbing, No Cyanosis, No Edema, No Tenderness/Swelling Assessment/Plan Assessment: This middle-aged male is admitted for abnormal behavior and psychosis. He has previous history of psychiatric illness and claims that he has not been taking any medication. From medical standpoint he has hypertension which is well- controlled on lisinopril and we will continue the same for now. He also reports some history of high sugar and we will check his hemoglobin A1c and monitor blood sugar twice a day with Accu-Cheks to see if he needs any medicine. As Ranked By This Provider Problem List: 1. Depression, major, recurrent, severe with psychosis 2. Borderline hypertension 3. Diet-controlled diabetes mellitus 4. Paranoid ideation Miscellaneous Miscellaneous Documentation Attending Case Discussed With: Harini Kay MD Primary Care Physician: Sandra Dasilva MD Patient sees these Specialists none Level of Patient Care: CELIA Kinney Attending MD Review Statement Attending Statement Attending MD Statement: examined this patient, reviewed EMR data (avail), discussed with nursing Attending Assessment/Plan: This middle-aged male is admitted for bizarre behavior and psychotic thoughts and nonspecific psychosis. He has a history of hypertension but is well controlled on lisinopril. We will monitor his sugar with Accu-Cheks twice a day and check his hemoglobin A1c to see if he needs any medication.
--- NOTE | 2017-11-20 16:45 | SOCIAL WORKER PROG NOTE PSYCH ---
Social Work Progress Note Progress Note Larry was sitting in the kitchen visiting with his around 4:30pm. I was only able to introduce myself as his social economist. I offered to meet with him now or tomorrow since he was visiting. He said he would prefer tomorrow.
--- NOTE | 2017-11-20 16:48 | SOCIAL WORKER SOCIAL HX PSYCH ---
Social History Basic Assessment Insurance Authorization: Insurance #1: Insurance name: [employer] Phone number: Policy number: [id number] Group number: [id number] Authorization number: Primary Care Physician: Patient's PCP: Sandra Dasilva MD PCP's Present Problem: The patient is a 61 year old male BIBA from [facility] to the ED with a complaint of delusional thought process. Patient presented as alert, cooperative, orientated x3 with anxious mood and delusional thought process. Patient states "I have problems distinguishing reality from non-reality. There is stuff playing in my head, stuff gets added and builds and builds. There are two realities in my head and I go back and forth between the two. I make up a story in my head with people I meet being characters in the story. The story gets made up and builds. I cannot control it." The patient endorses having premonitions including knowing the space shuttle was blowing up in the , the twin towers were coming down, flight 800 being shot down, and a co-worker experiencing a work-related injury. He states he feels guilty and hopeless after the event happens because he did not intervene. The patient states he attended a class to see if he was a psychic in the past. The patient endorses watching the news on a consistent basis. "I am obsessed with the news." The patient endorses paranoid delusional thoughts of being under surveillance starting 3 weeks ago and not wanting to leave his home. The patient denies SI/HI/AH/VH. The patient denies being depressed stating "I do not know what depression is." The patient endorses regular sleep (8 hours nightly), normal appetite and unremarkable energy/motivation issues. The patient reports trouble concentrating as a result of delusional thought process. The patient reports past inpatient treatment, IOP and current treatment with [facility]. The patient reports being on medication in the past (haldol, cogentin & zoloft), which helped ease his symptoms, but not have them cease. The patient reports not being compliant with medication for several years and relying on talk therapy. The patient denies any alcohol or drug use and toxicology/etoh screens were negative. The patient agreeable to a voluntary admission and to start taking medication to treat symptoms. Spoke to patient's , Ashlee Muñoz . Ashlee confirms patient's decompensation over the past three weeks and telling her of surveillance and premonitions. Ashlee states the patient's symptoms started worsening eight years ago, she attributes the decompensation to a stressful work environment the patient was exposed to at the time. Ashlee agrees the patient needs an admission to stabilize symptoms. Primary Language? Syrian Language(s) Spoken At Home: Syrian Living Situation Feel Safe Where You Are Living Yes Feel Safe in Relationships? Yes Allergies - Coded Allergies: NO KNOWN ALLERGIES (10/06/10) Current Medications - Scheduled Medications Lisinopril 10 MG TABLET 1 TAB PO DAILY BP #30 (Reported) Entered as Reported by Monica Davis on 10/28/171853 Metformin HCl (Metformin HCl ER) 500 MG TAB.ER.24H 1 TAB PO DAILY DM #30 ( Reported) Entered as Reported by Monica Davis on 10/28/171853 Consequences of Psych Med Use: pt has been off medications since Mar 2016. 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 Childhood Family Constellation: Patient is the second youngest of 8 children. Mom was a stay at home mom Dad worked He has 4 sister and 3 brothers Money was tight, but they were not unlike others in neighborhood Primary Childhood Caretakers: father, mother Family Life During Childhood: Family life was good, growing up, but mom exhibited a lot of fears, due to anxiety. DCF Involvement? No Relationship w/Mother: mom Patient reports having had a good relationship with mother. Relationship w/Father: Father . Patient states good relationship with father, as well. Any Sibling(s)? Yes Sibling's Gender(s)/Age(s): male Sibling 1:, female Sibling 2:, male Sibling 3:, male Sibling 4:, female Sibling 5:, male Sibling 6:, female Sibling 7: Relationship w/Sibling(s): WE got along pretty well for a big family. Relationship w/Friends: I didn't have too many friends, but had able to have a good small group of 3 or 4 in neighborhood. Abuse/Trauma History Trauma History/Current Trauma: none reported. Victim or Perpretator? victim (none reported) Patient's Age at Time of Trauma: 1 Abuse/Trauma Treatment: Client denied any trauma or trauma treatment. Legal History Current Legal Status: none Hx of Juvenile Legal Charges? No Hx of Adult Legal Charges? No Psychosocial History Primary Support System: Strengths/Capabilities: Client has worked in the past Client is able to articulate himself clearly Physical Limitations (Interventions): None noted History of Blackouts? No ADL Limitations: none reported [place]/Social/Peer Relations has only friends that he and know, but don't see that often. Meaningful Activities: gardening Childhood Scientology: [employer] Current Lutheran Affiliation: no mu-ism stated Is Spirituality Important to You? yes Patient's Ethnicity: Persian Are There Developmental Issues? No Milestones Achieved: WNL Psychiatric Treatment History Psych Treatment Inpatient Treatment Yes Outpatient Treatment Yes [facility] of [facility] Reason for Treatment Delusional Disorder Dates of Treatment [facility]-11/2014; [facility]Current Response to Treatment Delusions have intensified and patient has decompensated. Diagnosis: Other Schizophrenia Spectrum D/O F22 Delusional Disorder Psychodynamic Issues: patient not comfortable with people. "Do not like groups" Risk Factors: SA/MH hospitalized, male Substance Use/Abuse History Drug Use/Abuse:Min 12 mo hx Substance Used/Abused No History Have You Ever Attended AA? No Symptoms of Use: no reported use Substance Abuse Treatment Substance Abuse Treatment Inpatient Treatment No Outpatient Treatment No Sexual History Sexual Concerns: None Education History Highest Level of Education: high school/GED Highest Grade Completed: 12th Vocational Year Completed: [employer] Number of College Years: 0 Preferred Learning Style: visual, auditory, experiential HX of Learning Difficulties: None reported Barriers to Learning: None reported Special Communication Needs: None reported Employment History Employment Unemployed Not in Labor Force: states no jobs around, but looking. No. of Jobs in Last 5 Years: 0 Attendance: Normal Performance: Average History Have You Been in The ? No Current Mental Status Mental Status Orientation: Person, Place, Situation Affect: Anxious, Constricted Speech: WNL Neuro-vegetative: Concentration Poor Appearance Appearance- Dress/Hygiene: Patient was dressed in hospital scrubs and hygienic. Patient made minimal eye contact staring at the ground when speaking for a majority of the session. Behaviors Thought Process: Irrational Thought Content: Delusions, Obsessions Memory: WNL Insight: Poor SI/HI Risk Assessment Past Suicidal Ideation/Attempts No Current Suicidal Ideation/Att No Past Homicidal Ideation/Att: No Current Homicidal Ideation/Attempts No Degree of Intent: None Danger To: N/A Gravely Disabled: Inability Lethality Ratin (mild) - Conclusion and Recommendations for treatment - and discharge planning Summary: pt presents as withdrawn, depressed but calm and cooperative. Pt reports adjusting to milieu and plan for visit with this afternoon. Pt reports having met with Psychaitrist and is open to a trial of zoloft and risperidon. Pt reports plan to resume treatment with outpatient when ready for discharge.
[2017-11-20 20:11] VITALS: BP 116/79
[2017-11-21 07:45] VITALS: BP 138/68
--- NOTE | 2017-11-21 10:54 | SOCIAL WORKER PROG NOTE PSYCH ---
Social Work Progress Note Progress Note Larry was in bed at 10am. Prompted him to get up and meet with me. He did get up. He reported feeling very fatigued. Reports he has been feeling this way since he was here. Stated he is here to get help with the "movie" that is playing in his head. He said it is difficult sometimes to distinguish between reality and what is going on in his mind. He reports thoughts and images that build up and become stressful. At times he is able to manage it. Reports he has had these symptoms for 8 years, but they have been more in control at times. He has been seeing Nenita Fontana individually about 1x a month for 2 years. I asked what he has been working on? He said that he is trying to do gardening and things to distract. He reports struggling with leaving the house for the past 4 weeks, but states he has been trying to force himself. He stated his and his therapist are his main supports. His is retired and they are living on her pension. He has not worked in 8 years. 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 When asked how he felt about being here? He stated "uneasy." He feels suspicious of staff and peers in general. Encouraged him to continue to talk about that with the doctor and I. Reports his mood is down. He makes very little eye contact and starred down during the interview most of the time. Denies SI/HI. Reports some anxiety. Open to having a family meeting with his . Called [facility] [phone] to complete review for continued stay. Left updated clinical. Authorization given for 2 units with review on 11/23.
--- NOTE | 2017-11-21 14:23 | CP SOUTH PROGRESS NOTE PSYCH ---
Psych (Inpt) Progress Note Progress Note Laboratory Tests 11/21 Hemoglobin A1c (4.2 - 5.8 %) 6.2 H Vital Signs Date Time Temp Pulse Resp B/P B/P O2 11/21 0803 96.1 83 20 138/68 11/21 0745 96.1 83 138/68 11/20 2010 98.3 100 116/79 Mental Status Examination The patient was tired but steady on his feet. Marginal grooming, calm, cooperative. Reduced psychomotor activity, no abnormal behaviors. Reduce quantity and rate of speech, not slurred. Constricted range of affect, mood is depressed and anxious, denied thinking of suicide or wishing , denied thinking of violence or homicide, denied hallucinations, denied paranoid fears, there were no specific delusions during the interview. Larry has some difficulties with thought organization, however, today he did not report racing thoughts. Alert and oriented to time, place, and person. Mild difficulties with attention concentration and information processing. No gross deficits in short- term memory Assessment: Larry Muñoz (: ) is a 61-year-old white male who presents with difficulties recognizing reality from non-reality in his own words. 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 He was diagnosed in 2014 with a delusional disorder after an inpatient psychiatric admission. He has been without psychotropic medications since at least March 2016. Since his admission on 11/19/2017, Larry has shown a decline in the severity of anxiety and decline in racing/jumbled thoughts Diagnoses: Unspecified Psychotic disorder Generalized anxiety disorder Status post Prostate cancer and, in remission and Diabetes mellitus Treatment Plan Update: 1) Change Risperdal to 2 mg PO QHS 2) Continue Ativan 1 mg for anxiety every 6 hours PRN 3) Reduce Ativan to 1 mg as needed at bedtime for insomnia 4) Increase Zoloft to 100 mg once daily starting tomorrow.
[2017-11-21 19:58] VITALS: BP 132/76
[2017-11-22 07:44] VITALS: BP 150/68
--- NOTE | 2017-11-22 10:33 | SOCIAL WORKER PROG NOTE PSYCH ---
Social Work Progress Note Progress Note I Bryant Powers (FILL TECHNICIAN Manufacturing Project Engineer) met with Larry this morning in the kitchen. This short story writer introduced herself as a social work student working with Janae Charlton LCSW. He was cooperative and engaged throughout the session. Larry made some eye contact and still has a flat affect. The patient describe his mood as okay today. When discussing the aftercare treatment options with Larry he expressed not wanting to do IOP because he has done it in the past and does not feel comfortable with the group treatment. This short story writer inquired further about the outpatient treatment that Larry was receiving. Larry reported that he was seeing his therapist once a month. He is aware and is open to seeing a therapist more frequently. He described the therapy as solution focused.When exploring what led the client to isolate he could not recall and could not think of any stressors.Larry feels safe on the unit but is weary about other peers on the unit He could not describe the weariness further. Prior to isolating he enjoyed going on vacations and socializing with friends.When I questioned if he felt depressed he responded saying he does not know what depression is for him. He acknowledges that he tends to isolate, sit, and think. He has tried engaging in meditation but he claims that meditation is no longer helpful. Larry reports that he started to withdraw socially about 15 years ago. He has been with his for 35 years and occasionally feels anxiety when home alone. The anxiety is general because it occurs when the is present as well. He describes that he has a fear that something will happen. Larry is still willing to take medications because he feels that they are needed right now. He is currently not experiencing side effects. He did mention that he is willing to continue taking medications when he is not in the hospital. Larry enjoys gardening and watching the news. I called and spoke with his a family meeting is scheduled for 10 am.
--- NOTE | 2017-11-22 13:59 | CP SOUTH PROGRESS NOTE PSYCH ---
Psych (Inpt) Progress Note Progress Note Vital Signs Date Time Temp Pulse Resp B/P 11/22 0751 96.6 91 20 150/68 11/22 0744 96.6 91 150/68 Mental Status Examination The patient was alert and oriented to time, place, and person. He did very well on mini-mental status exam (). He reported that he feels tired/having low energy. He was calm, cooperative. He exhibits reduced psychomotor activity, and reduced quantity and rate of speech, not slurred. Constricted range of affect, mood is depressed and anxious, denied thinking of suicide or wishing , denied thinking of violence or homicide Larry denied hallucinations, denied paranoid fears, there were no specific delusions during the interview. Larry has some difficulties with thought organization, however, today he did not report racing thoughts. Assessment: Larry Muñoz (: 1955) is a 61-year-old white male who presents with difficulties recognizing reality from non-reality in his own words. 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 He was diagnosed in 2014 with a delusional disorder after an inpatient psychiatric admission. He has been without psychotropic medications since at least March 2016. Since his admission on 11/19/2017, Larry has shown a decline in the severity of anxiety and decline in racing/jumbled thoughts Diagnoses: Unspecified Psychotic disorder Generalized anxiety disorder Status post Prostate cancer and, in remission and Diabetes mellitus Treatment Plan Update: 1) Continue Risperdal 2 mg PO QHS 2) ADD Ativan 1 mg Q6 hours PRN anxiety 3) Continue Ativan 1 mg as needed at bedtime for insomnia 4) Continue Zoloft 100 mg once daily starting tomorrow.
[2017-11-22 20:15] VITALS: BP 113/65
[2017-11-23 07:40] VITALS: BP 115/63
--- NOTE | 2017-11-23 09:09 | CP SOUTH PROGRESS NOTE PSYCH ---
Psych (Inpt) Progress Note Progress Note Vital Signs Date Time Temp Pulse B/P 11/23 0740 96.2 89 115/63 11/22 2014 98.5 96 113/65 Family Meeting: Patient & patient's (Ashlee); Sarika Zambrano CLASSIFICATION OFFICER; Bryant Powers, [employer] [facility]; & Dr. Erika MD. Mental Status: Larry talked very little during family meeting. was talkative and long- winded. Larry was alert and oriented to time, place, and person. He was calm and cooperative. He exhibited reduced psychomotor activity, constricted range of affect, He feels that he struggles with anxiety much more than his struggle with depression. He denied thinking of suicide or wishing , and denied thinking of violence or homicide. Larry denied hallucinations, In the meeting, patient shed light on what seemed to be significant delusional system (which was observed in the patient's 2014 admission when he was given a diagnosis of Delusional Disorder). The examples that the came up with included paranoid themes (including Larry's belief that a neighbor was still alive, that he and his will get into trouble with the law because a certain weed spead into the neighbor's yard, paranoia in the supermarket or when leaving the house, irrational fears about 's safety, or that a tree may fall on someone walking in front of the house, etc. etc.). Larry seems to have some mild catatonia and difficulties with thought organization Assessment Update: Larry Muñoz (: 1955) is a 61-year-old white male who presents with difficulties recognizing reality from non-reality in his own words. 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 He was diagnosed in 2014 with a delusional disorder after an inpatient psychiatric admission. He has been without psychotropic medications since at least March 2016. Since his admission on 11/19/2017, Larry has shown a decline in the severity of anxiety and decline in racing/jumbled thoughts. Today, shared what seemed to be significant paranoid delusions for several months if not years Diagnoses: Unspecified Psychotic Disorder Generalized Anxiety disorder Status post Prostate cancer and, in remission and Diabetes mellitus Treatment Plan Update: 1) Continue Risperdal 2 mg PO QHS 2) continue Ativan 1 mg Q6 hours PRN anxiety and Ativan 1 mg as needed at bedtime for insomnia 3) Continue Zoloft 100 mg once daily.
--- NOTE | 2017-11-23 10:50 | SOCIAL WORKER PROG NOTE PSYCH ---
PriyaGena 11/23/17 1049: Social Work Progress Note Progress Note I Bryant Powers ([facility] [employer]) along with doctor Erika and social science analyst Sarika had a family meeting with Larry and his at 10am this morning.There was a discussion of how Larry has not been taken any medications since 2015 due to being resistant. Two events were mentioned in the meeting that could have impacted Larry which were his retiring and having to put a cat to sleep within the last year. The patient is currently willing to take medications and believes they could potentially be helpful. The patient's expressed concerns about the patient not being able to distinguish between reality and his thoughts. He still reports having paranoid thoughts today. Larry was in agreement that he get overly concerned about his safety and his 's safety. The thoughts that Larry has leds him to isolate. Doctor James explained and answered questions about Larry's medications. After care plans were brought up in the meeting. Larry's explained that last time Larry completed IOP he was stressed by hearing and empathizing with other people's stories. The recommendation of IOP was emphasized and the patient was willing to try IOP while continuing with medications. Samaria from [facility] is willing to schedule an intake when definite discharge date is in place. A transfer summary was completed and faxed over to [facility]. Larry rated both his anxiety and depression as a 5 out of 10 with 10 being sever. He stated that he felt a lack of energy today.
[2017-11-23 20:01] VITALS: BP 138/72
[2017-11-24 07:49] VITALS: BP 135/75
--- NOTE | 2017-11-24 13:48 | CP SOUTH PROGRESS NOTE PSYCH ---
Psych (Inpt) Progress Note Progress Note Include the following elements, when applicable: Involvement in the active treatment of the patient with behavioral observations of the patient and the patient's response to the treatment. Review of the ongoing treatment process in the context of the treatment plan. Indication of how multi-disciplinary staff members are carrying out the treatment plan. Plans for future interventions and recommendations for revision of the treatment plan. Liaison with other physicians/providers. Progress Note: Down somewhat, withdrawn. Focused on the intensity of his strange thoughts, inability to get his mind off of them. We discussed mindfulness (accept strange thought, let it go) and reality testing, weighing the possibility vs implausibility of his strange thoughts and writing them down, and he said he would try that. He has been sleeping poorly overall. His has been visiting him. His appetite is normal. He had difficulty focusing on medication discussion and I wrote down the PRNs and indications for him, he said it would be helpful, unsure if he will use the PRNs however. MSE: middle aged man, poor grooming, poor hygiene. Speech is soft, regular rate. Mild psychomotor slowing. No tic or tremor. Thinking is logical, concrete overall. Does not speak about his delusions. He is not internally preoccupied, some delayed response latency at times, appears related to his mood and anxiety about thoughts. Mood is down, affect is constricted. Not suicidal and does not want to harm anyone else. His insight and judgment are adequate. A: 61 year old man with significant delusional symptoms, depressed mood, anxiety , appears down and withdrawn, focused on his disordered thoughts. He has risks associated with severity of his thought disorder and anxiety, but overall is slowly improving and has social support to mitigate his risk. Plan: continue education, support, groups, family involvement. No med changes.
[2017-11-24 19:38] VITALS: BP 151/79
[2017-11-25 07:47] VITALS: BP 148/69
--- NOTE | 2017-11-25 10:30 | CP SOUTH PROGRESS NOTE PSYCH ---
See Addendum Psych (Inpt) Progress Note Progress Note Include the following elements, when applicable: Involvement in the active treatment of the patient with behavioral observations of the patient and the patient's response to the treatment. Review of the ongoing treatment process in the context of the treatment plan. Indication of how multi-disciplinary staff members are carrying out the treatment plan. Plans for future interventions and recommendations for revision of the treatment plan. Liaison with other physicians/providers. Progress Note: More awake, brighter compared to yesterday. Said that his thoughts are "tough to explain" and gave some examples of how he hears a word and then starts to integrate it in sentences or beliefs, that his beliefs are all over the place. Has been able to not focus on them, and has not been speaking about them overall to me, which is an improvement. Said that he attended group which was a nice distraction, his came to visit. Has started to use the haldol PRN for his thinking and said it does help. We discussed increasing risperdal so he uses less PRNs and he was agreeable, said that morning is worse for him so would like to add in extra dose in am. Slept well and ate well. MSE: middle aged man, poor grooming, fair hygiene. Speech is soft, regular rate. No tic or tremor, no psychomotor changes. His thinking is logical and linear. He does not mention his delusional thinking but admits he still has it. Eye contact is fair, eyes down at times. Mood is neutral and affect is constricted. He is not internally preoccupied and no evidence of thoughts to harm self or anyone else. His insight and judgment are adequate. A: 61 year old man with significant delusional symptoms, depressed mood, anxiety , appears down and withdrawn, focused on his disordered thoughts. He has risks associated with severity of his thought disorder and anxiety, but has been improving significantly, is engaged with treatment, has social support and insight regarding residual symptoms, mitigating his acute risk. Plan: continue education, support, groups, family involvement. Start risperdal 1mg at 9am in addition to 2mg at night time to target residual thought disorder.
[2017-11-25 19:59] VITALS: BP 112/57
[2017-11-26 07:45] VITALS: BP 130/66
--- NOTE | 2017-11-26 10:51 | CP SOUTH PROGRESS NOTE PSYCH ---
Psych (Inpt) Progress Note Progress Note I reviewed Dr. Whitman's notes for the weekend of 11/24 and 11/25 Vital Signs Date Time Temp Pulse B/P B/P Pulse O2 O2 Flow FiO2 11/26 0846 75 130/66 11/26 0745 97.2 75 130/66 11/25 1958 98.7 83 112/57 Mental Status: Larry is still constricted in affect and talked very little (however, there is relative improvement in both). Larry was alert and oriented to time, place, and person. He was calm and cooperative, reduced psychomotor activity, struggles with anxiety much more than his struggle with depression. He denied thinking of suicide or wishing , and denied thinking of violence or homicide. Larry denied hallucinations He reported some lingering paranoia (e.g. about visitors of other patients on the weekend), irrational fears, less catatonia showing better thought organization, denied talking to a painting Assessment Update: Larry Muñoz (: 1955) is a 61-year-old white male who presents with difficulties recognizing reality from non-reality (in his own words). 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 He was diagnosed in 2014 with a delusional disorder after an inpatient psychiatric admission. He has been without psychotropic medications since at least March 2016. Since his admission on 11/19/2017, Larry has shown improvement in anxiety and less racing/ jumbled thoughts. During his stay, his shared what seemed to be significant paranoid delusions for several months if not years Diagnoses: Unspecified Psychotic Disorder Generalized Anxiety Disorder Status post Prostate cancer and, in remission Diabetes mellitus Treatment Plan Update: 1) Increase Risperdal to 2 mg BID (he said he found PRN Haldol very helpful) 2) continue Ativan 1 mg Q6 hours PRN anxiety and Ativan 1 mg as needed at bedtime for insomnia 3) Continue Zoloft 100 mg once daily.
--- NOTE | 2017-11-26 14:52 | SOCIAL WORKER PROG NOTE PSYCH ---
See Addendum Social Work Progress Note Progress Note STEPHANE and Dr. James met with pt. Pt reports he is feeling good and denies SI, HI and VH. Larry has a flat, constricted in affect and spoke very little. He is coopertive in meeting. He rates his anxiety a 2, on a scale of 0-10, 10 being the worst. He reports being more anxious than depressed and still feels paraniod at times when people come to visit. He reports not hearing voices as intensly like when he was first admitted, denies talking to the painting. He reports the family meeting went well and his weekend was okay on the unit. Pt reports going to some groups but that it would become overwhelming at times listening to other people's stories about their struggles and suicide. He reports sleeping better and that the medications have helped his sleep as well as his racing thoughts. Dr. Haro updated pt on his medication adjustments and pt was agreeble. Pt reports his thoughts being managable now with his medications. Pt is willing to go to [facility], as he has gone in the past. Pt is ready to go home tomorrow and wants to get back home where he is more comfortable and be with his . 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 STEPHANE called [facility] and left a voicemail for Samaria (ex. [phone]) to set an appoitment for intended discharge date.
--- NOTE | 2017-11-26 15:37 | SOCIAL WORKER PROG NOTE PSYCH ---
Social Work Progress Note Progress Note SW left message for Alva at [facility] to complete concurrent review [phone]. Awaiting call back.
--- NOTE | 2017-11-26 16:50 | SOCIAL WORKER PROG NOTE PSYCH ---
Social Work Progress Note Progress Note SW authorization review completed with Alva at [facility] [id number]. 1 day authorized with plan to step-down tomorrow to IOP. No pre-authorization required for IOP.
[2017-11-26 19:37] VITALS: BP 115/58
[2017-11-27 07:43] VITALS: BP 112/58
[2017-11-27 07:52] VITALS: BP 112/58
[2017-11-27] MEDS ORDERED: HALOPERIDOL5 MG PO (08:10)
[2017-11-27] MEDS ORDERED: ZOLOFT100 M1 PO (08:10)
[2017-11-27] MEDS ORDERED: ATIVAN1 M1 PO (08:12)
--- NOTE | 2017-11-27 08:16 | Patient Discharge Instructions ---
Psych Discharge Inst General Discharge Information Reason for Admission: disorganized thoughts and delusions Psy Discharge Primary Diag+ Unspecified Psychotic DO Psy Discharge Secondary Diag+ Generalized Anxiety DO Summary Tests/Major Procedures Lab Cholesterol 180 MG/DL 11/19/17 1610 Cholesterol/HDL Ratio 6 % H 11/19/17 1610 HDL Cholesterol 31 mg/dL L 11/19/17 1610 Hemoglobin A1c 6.2 % H 11/21/17 0630 LDL Cholesterol, Calc 115 mg/dL 11/19/17 1610 Triglycerides 173 mg/dL H 11/19/17 1610 Studies Pending at DC: None Patient Instructions Contact Information Your Psychiatrist on [facility] was Erika AGUDELO,Khurram * If you are experiencing an emergency related to this hospitalization, please call [phone] to contact the treating psychiatrist or the psychiatrist-on- call. * To Request a copy of your medical records, please contact the Medical Records Department at [phone]. * To request results of studies pending at the time of discharge, please call [phone]. * Continue your Medications until directed to stop by your Healthcare provider. General Medication Information Please continue to take your new medications and your continued home medications , unless otherwise indicated on your discharge medication list, or unless directed by your MD or FISHER to stop them. Special Instructions Diet Diabetic Activity Normal - Tobacco Use Treatment Offered Post DC Medications Offered: Not Applicable Post DC Tobacco Treatment Plan: Not Applicable - EtOH/Drug Use D/O Treatment Offered Post DC Medications Offered: NA-No EtOH/Drug Use D/O Post DC EtOH/SubAbuse [place] Plan: NA-No EtOH/Drug Use D/O Metabolic Screening Patient on a neuroleptic(s) . Enter below results for Hemoglobin A1C, and lipid panel if obtained during the last 365 days. BMI: 30.200 Blood Pressure: 112/58 Laboratory Results From [facility] (If applicable): Lab Cholesterol 180 MG/DL 11/19/17 1610 Cholesterol/HDL Ratio 6 % H 11/19/17 1610 HDL Cholesterol 31 mg/dL L 11/19/17 1610 Hemoglobin A1c 6.2 % H 11/21/17 0630 LDL Cholesterol, Calc 115 mg/dL 11/19/17 1610 Triglycerides 173 mg/dL H 11/19/17 1610 Advance Directives Does the Patient have Medical Advance Directives No/Refused further info Does Pt have Psychiatric Advance Directives? No/Refused further info Does Patient have a Designated Surrogate Decision Maker: No Information About Psychiatric Advance Directives Provided? Refused Discharge Plan Post Hospital Treatment Plan: GH-IOP
--- NOTE | 2017-11-27 08:30 | DISCHARGE SUMMARY REPORT-PSYCH ---
Visit Information Visit Dates/Diagnosis' Admission Date: 11/19/17 Discharge Date: 11/27/17 Reason for Admission: disorganized thoughts and delusions Psy Discharge Primary Diag: Unspecified Psychotic DO Psy Discharge Secondary Diag: Generalized Anxiety DO Hospital Course Significant Lab Findings: Lab Cholesterol 180 MG/DL 11/19/17 1610 Cholesterol/HDL Ratio 6 % H 11/19/17 1610 HDL Cholesterol 31 mg/dL L 11/19/17 1610 Hemoglobin A1c 6.2 % H 11/21/17 0630 LDL Cholesterol, Calc 115 mg/dL 11/19/17 1610 Triglycerides 173 mg/dL H 11/19/17 1610 Course Complications: The patient did not have any complications while he was on the inpatient psychiatric unit. Consultations: Patient had a history and physical examination while he was on the inpatient psychiatric unit. Please refer to the patient's electronic health record for the details of the H&P. Allergies: Coded Allergies: NO KNOWN ALLERGIES (10/06/10) Hospital Course/TX Response: 11/20/2017 Impression and Plan: 61-year-old white male who presents with difficulties recognizing reality from non-reality in his own words. 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 He was diagnosed in 2014 with a delusional disorder after an inpatient psychiatric admission. He has been without psychotropic medications since at least March 2016. Diagnosis(es): Unspecified psychotic disorder Generalized anxiety disorder Status post prostate cancer and, in remission and Diabetes mellitus Initial Tx Plan: Inpatient psychiatric care with safety checks every 15 minutes Nursing assessments, vital signs, and patient education and Group therapy, activities therapy, and milieu therapy Continue Risperdal 1 mg twice daily Add as needed doses of Ativan 1 mg for anxiety every 6 hours Add Ativan 2 mg as needed at bedtime for insomnia Start Zoloft 50 mg once daily starting today 11/21/2017: Treatment Plan Update: 1) Change Risperdal to 2 mg PO QHS 2) Continue Ativan 1 mg for anxiety every 6 hours PRN 3) Reduce Ativan to 1 mg as needed at bedtime for insomnia 4) Increase Zoloft to 100 mg once daily starting tomorrow. 11/22/2017: 1) Continue Risperdal 2 mg PO QHS 2) ADD Ativan 1 mg Q6 hours PRN anxiety 3) Continue Ativan 1 mg as needed at bedtime for insomnia 4) Continue Zoloft 100 mg once daily starting tomorrow. 11/23/2017: No changes in patient's psychiatric medications 11/24/2017: No changes in patient's psychiatric medications 11/25/2017: Start risperdal 1mg at 9am in addition to 2mg at night time to target residual thought disorder. 11/26/2017: 1) Increase Risperdal to 2 mg BID (he said he found PRN Haldol very helpful) 2) continue Ativan 1 mg Q6 hours PRN anxiety and Ativan 1 mg as needed at bedtime for insomnia 3) Continue Zoloft 100 mg once daily. 11/27/2017: Vital Signs Date Time Temp Pulse B/P 11/27 0752 79 112/58 11/27 0743 97.7 79 112/58 Mental Status: Larry was alert and oriented to time, place, and person. He reported that he found that the as needed doses of Haldol with very effective in reducing his negative thinking, he seems to prefer that to Risperdal. He continues to show constricted affect. He mostly talks to answer questions with brief answers. Reduced quantity and rate of speech. He was calm and cooperative, reduced psychomotor activity, struggles with anxiety much more than he struggles with depression. He does endorse significant reduction in interests and ability to experience pleasure. He denied feeling hopeless, denied thinking of suicide or wishing , and denied thinking of violence or homicide. Larry denied hallucinations. He denied paranoia. However he reported that he continues to have repetitive thoughts mostly of expecting the worst/irrational fears. His paranoid delusions are dormant and require eliciting. He has been showing better thought organization Assessment Update: Larry Muñoz (: 1955) is a 61-year-old white male who was admitted to the inpatient psychiatric unit on 11/19/2017 on a voluntary status because of difficulties recognizing reality from non-reality (in his own words). He had a formal thought disorder and paranoid delusions (paranoid delusions where were not recognized until his should more light on that). He was diagnosed in 2014 with a delusional disorder after an inpatient psychiatric admission at [facility]. He has been without psychotropic medications since at least March 2016. Since his admission on 11/19/2017, Larry has shown mild improvement in anxiety and thought disorder. His paranoid delusions are now dormant. He has not been expressing any thoughts of suicide or violence or homicide since his admission. He is agreeable to doing the intensive outpatient program at [facility]. Diagnoses: Unspecified Psychotic Disorder Generalized Anxiety Disorder Status post Prostate cancer, in remission Diabetes mellitus Hypertension Treatment Plan Update: Discharge to the intake appointment at [facility]'s intensive outpatient program and then home Discharge HBIPS - Tobacco Use Treatment Offered Post DC Medications Offered: Not Applicable Post DC Tobacco Treatment Plan: Not Applicable - EtOH/Drug Use D/O Treatment Offered Post DC Medications Offered: NA-No EtOH/Drug Use D/O Post DC EtOH/SubAbuse TX Plan: NA-No EtOH/Drug Use D/O Metabolic Screening - Screen if on a Neuroleptic Medication - Metabolic screening should include: - Blood Pressure, BMI, Glucose or Hgb A1c, & a - Lipid profile from within the past 365 days. Metabolic Screening Patient on a neuroleptic(s) . Enter below results for Hemoglobin A1C, and lipid panel if obtained during the last 365 days. BMI: 30.200 Blood Pressure: 112/58 Laboratory Results From [facility] (If applicable): Lab Cholesterol 180 MG/DL 11/19/17 1610 Cholesterol/HDL Ratio 6 % H 11/19/17 1610 HDL Cholesterol 31 mg/dL L 11/19/17 1610 Hemoglobin A1c 6.2 % H 11/21/17 0630 LDL Cholesterol, Calc 115 mg/dL 11/19/17 1610 Triglycerides 173 mg/dL H 11/19/17 1610 Discharge Instructions General Discharge Information Multiple Neuroleptics: Not Applicable Discharge Diet Diabetic Discharge Activity Normal DC Disposition: Home Referrals Ordered Referrals Provider Referral 11/27/17 For Groups: [ IOP] Pt has an intake with [facility] at: 11/27/17 at 1:15pm [address] Prescriptions Continue taking these medications: Lisinopril (Lisinopril) 10 MG TABLET 1 Tablet ORAL DAILY Qty = 30 Comments: Last Taken:11/27/17 Time:8AM Metformin HCl (Metformin HCl ER) 500 MG TAB.ER.24H 1 Tablet ORAL DAILY Qty = 30 Comments: Last Taken:11/26/17 Time:5PM Start taking the following new medications: Sertraline HCl (Zoloft) 100 MG TABLET 100 Milligram ORAL DAILY Qty = 30 No Refills Comments: Last Taken:11/27/17 Time:8AM Haloperidol (Haloperidol) 5 MG TABLET 5 Milligram ORAL TWICE DAILY Qty = 30 No Refills Comments: Last Taken:11/27/17 Time:8AM LORazepam (Ativan) 1 MG TAB 1 Tablet ORAL EVERY 6 HOURS NEEDED as needed for anxiety or insomnia Qty = 30 No Refills Comments: Last Taken:11/26/17 Time:9:30PM Studies Pending at Discharge None Copies To: Arturo MONTOYA,Nenita Camacho
--- NOTE | 2017-11-27 14:56 | SOCIAL WORKER PROG NOTE PSYCH ---
Social Work Progress Note Progress Note [facility]ah/vh. He is agreeable to IOP, his picked him up.
--- NOTE | 2017-11-28 11:39 | SOCIAL WORKER PROG NOTE PSYCH ---
Social Work Progress Note Faxed Referral(s) Referred To: [facility] Transition of Care Documents sent: CORIE Instructions, Health Summary Faxed to: [facility] Fax #: [phone] Faxed by: Tere Choe Date faxed: 11/28/17 Time Faxed: [phone]
== END 2017-11-27 13:20 | DRG 885 ==
LOC: ERH 10:09 → ERHI 11-19 15:49 → CP SOUTH 11-19 15:49
PROVIDERS: Emergency Medicine; Psychiatry & Neurology Psychiatry
DX: F29 Unspecified psychosis not due to a substance or known physiological condition (principal); F41.9 Anxiety disorder, unspecified; E11.9 Type 2 diabetes mellitus without complications
CPT/HCPCS: 36415; 80307; 93005; 93010; G0463; G0480